=== PATIENT | female | born 1980 | race Caucasian/White ===

== ENCOUNTER → 2016-06-30 | Outpatient (CLI) | payer BC ==
[~2016-06-30] MED LIST: ATOR20TA PO; CARV12.5 PO; CARV3.12 PO; DILT30TA37 PO; DOXY25TA51 PO; LORA0.5T86 PO; [UNRECOGNIZED DRUG - OTHER] PO
[2016-06-30 09:41] LABS: BASOPHILS % (AUTO) 0.1 % (0-2); EOSINOPHILS # (AUTO) 0.2 T/MM3 (0-0.5); HCT - HEMATOCRIT 41.7 % (36-46); HGB - HEMOGLOBIN 13.9 GM/DL (12-16); IMMATURE GRANULOCYTE # (AUTO) 0.02 T/MM3 (0.00-0.03); IMMATURE GRANULOCYTE % (AUTO) 0.2 % (0.0-0.5); LYMPHOCYTES % (AUTO) 21.8 % (23-45); MEAN CORPUSCULAR HGB 29.4 UUG (26-34); MEAN CORPUSCULAR HGB CONC(MCHC 33.3 GM/DL (31-37); MEAN CORPUSCULAR VOLUME 88.3 UM3 (80-100); MEAN PLATELET VOLUME 9.4 UM3 (9.4-12.4); MONOCYTES # (AUTO) 0.5 T/MM3 (0-0.8); MONOCYTES % (AUTO) 4.9 % (0-9.0); NEUTROPHILS #(AUTO)-ABSOLUTE 6.5 T/MM3 (1.8-7.7); RED BLOOD COUNT 4.72 M/MM3 (4.00-5.20); WBC - WHITE BLOOD COUNT 9.1 T/MM3 (4.5-11.0)
[2016-06-30 09:51] LABS: ALBUMIN 4.3 G/DL (3.5-5.0); ALBUMIN/GLOBULIN RATIO 1.2 RATIO (1.1-2.2); ALKALINE PHOSPHATASE 125 U/L (38-126); ALT (SGPT) 496 U/L (9-52); ANION GAP 12 MEQ/L (5-15); AST (SGOT) 85 U/L (14-36); BUN/CREATININE RATIO 19 RATIO (6-26); CALCIUM 9.6 MG/DL (8.4-10.2); CHLORIDE 104 MEQ/L (98-107); CO2 - CARBON DIOXIDE 27 MEQ/L (22-30); CREATININE 0.9 MG/DL (0.7-1.2); GLOMERULAR FILTRATION RATE 71; GLUCOSE 126 MG/DL (65-110); MAGNESIUM 1.9 MG/DL (1.6-2.3); POTASSIUM 4.5 MEQ/L (3.6-5); SODIUM 143 MEQ/L (134-144); TOTAL PROTEIN 7.8 G/DL (6.3-8.2)
[2016-06-30 10:14] LABS: INFLUENZA A AG SCREEN NEGATIVE (NEGATIVE); INFLUENZA B AG SCREEN NEGATIVE (NEGATIVE)
[2016-06-30 10:21] LABS: THYROID STIM HORMONE-TSH 0.52 MIU/L (0.47-4.68)
== END ==
LOC: LAB 09:21
PROVIDERS: ATTEND Internal Medicine Cardiovascular Disease
DX: R00.2 Palpitations (principal); R05 Cough
CPT/HCPCS: 36415; 80053; 83735; 84436; 84443; 84480; 85025; 87400

== ENCOUNTER 2016-07-04 07:21 | Emergency (ER) | payer SELFPAY ==
[~2016-07-04] VITALS: Ht 165.1 cm; Wt 111.3 kg
[2016-07-04 07:21] VITALS: Ht 165.1 cm; Wt 111.3 kg
[~2016-07-04 07:21] MED LIST changes: -DILT30TA37 PO; -[UNRECOGNIZED DRUG - OTHER] PO
--- OUTSIDE RECORDS SUMMARY | 2016-07-04 07:26 | XMS REPORT ---
Author Radha Davidson Organization [employer] Address Unknown Phone Unavailable Care Team Providers Care Mri Supervisor Name Role Phone Radha Snow CP Unavailable Allergies No Known Allergies Problems No Known Problems Medications Medication Code System Code Instructions Start Date End Date Status Dosage Lab Order NDC 0 Orders Feb 29, 2016 as directed Results No Known Results Summary Purpose [employer] Submission
--- OUTSIDE RECORDS SUMMARY | 2016-07-04 07:26 | XMS REPORT ---
Author Hallie Bach Organization [employer] Address Unknown Phone Unavailable Care Team Providers Care Saturator Operator Name Role Phone Hallie Conway CP Unavailable Allergies No Known Allergies Problems No Known Problems Medications Medication Code System Code Instructions Start Date End Date Status Dosage Nitroglycerin [facility] [address]-57 0.4 MG Sublingual as directed Feb 03, 2016 not defined Prazosin HCl [facility] [address]-27 1 MG Orally twice a day Feb 03, 2016 1 Coreg [facility] [address]-57 12.5 MG Orally twice a day Feb 03, 2016 1 Results No Known Results Summary Purpose [employer] Submission
--- OUTSIDE RECORDS SUMMARY | 2016-07-04 07:26 | XMS REPORT ---
Author Author Radha Snow Organization [facility] Address [address] [place] [address] Care Team Providers Care Electrogalvanizing Machine Operator Name Role Phone Radha Snow Unavailable [phone] PROBLEMS Unknown Problems ALLERGIES Unknown Allergies SOCIAL HISTORY No smoking Hx information available PLAN OF CARE VITAL SIGNS MEDICATIONS Unknown Medications RESULTS No Results PROCEDURES No Known procedures IMMUNIZATIONS No Known Immunizations
--- OUTSIDE RECORDS SUMMARY | 2016-07-04 07:26 | XMS REPORT ---
Author Hallie Bach Organization [employer] Address Unknown Phone Unavailable Care Team Providers Care High Value Associate Name Role Phone Hallie Conway CP Unavailable Allergies No Known Allergies Problems No Known Problems Medications Medication Code System Code Instructions Start Date End Date Status Dosage Prazosin HCl [facility] [address]-15 2 MG Orally twice a day Feb 03, 2016 1 Results No Known Results Summary Purpose [employer] Submission
--- OUTSIDE RECORDS SUMMARY | 2016-07-04 07:26 | XMS REPORT ---
Author Author Radha Snow Organization [facility] Address [address] [place] [address] Care Team Providers Care Customs House Broker Name Role Phone Radha Snow Unavailable [phone] PROBLEMS Unknown Problems ALLERGIES Unknown Allergies SOCIAL HISTORY No smoking Hx information available PLAN OF CARE VITAL SIGNS MEDICATIONS Medication Instructions Dosage Frequency Start Date End Date Duration Status Toprol XL 25 MG Orally Once a day 1.5 tablets 24h Feb, 30 day(s ) Active Ciprodex 0.3-0.1 % Otic Twice a day 4 drops into affected ear 12h Mar, 7 days Active RESULTS No Results PROCEDURES No Known procedures IMMUNIZATIONS No Known Immunizations
--- OUTSIDE RECORDS SUMMARY | 2016-07-04 07:26 | XMS REPORT ---
Author Radha Davidson Organization [employer] Address Unknown Phone Unavailable Care Team Providers Care I&C Technician Name Role Phone Radha Snow CP Unavailable Allergies No Known Allergies Problems No Known Problems Medications Medication Code System Code Instructions Start Date End Date Status Dosage Pepcid [facility] [address]-74 20 MG Orally twice a day Feb 04, 2016 1 tablet at bedtime Results No Known Results Summary Purpose [employer] Submission
--- OUTSIDE RECORDS SUMMARY | 2016-07-04 07:26 | XMS REPORT ---
Author Author Radha Snow Organization [facility] Address [address] [place] [address] Care Team Providers Care Stereotyper Name Role Phone Radha Snow Unavailable [phone] PROBLEMS Unknown Problems ALLERGIES Unknown Allergies SOCIAL HISTORY No smoking Hx information available PLAN OF CARE VITAL SIGNS MEDICATIONS Medication Instructions Dosage Frequency Start Date End Date Duration Status Propranolol HCl 10 MG Orally twice a day one May, 30 day(s) Active RESULTS No Results PROCEDURES No Known procedures IMMUNIZATIONS No Known Immunizations
--- OUTSIDE RECORDS SUMMARY | 2016-07-04 07:26 | XMS REPORT ---
Author Radha Davidson Organization [employer] Address Unknown Phone Unavailable Care Team Providers Care Supply Planner Name Role Phone Radha Snow CP Unavailable Allergies No Known Allergies Problems No Known Problems Medications Medication Code System Code Instructions Start Date End Date Status Dosage Coreg [facility] [address]-42 3.125 mg Orally BID in combination to make 9.375 mg BID Feb 03, 2016 1 Results No Known Results Summary Purpose [employer] Submission
--- OUTSIDE RECORDS SUMMARY | 2016-07-04 07:26 | XMS REPORT ---
Author Author Radha Snow Organization [facility] Address [address] [place] [address] Care Team Providers Care Moth Exterminator Name Role Phone Radha Snow Unavailable [phone] PROBLEMS Unknown Problems ALLERGIES Unknown Allergies SOCIAL HISTORY No smoking Hx information available PLAN OF CARE VITAL SIGNS MEDICATIONS Medication Instructions Dosage Frequency Start Date End Date Duration Status Hydrochlorothiazide 25 MG Orally Once a day 1 tablet 24h Apr, 30 day(s) Active RESULTS No Results PROCEDURES No Known procedures IMMUNIZATIONS No Known Immunizations
--- OUTSIDE RECORDS SUMMARY | 2016-07-04 07:26 | XMS REPORT ---
Author Radha Davidson Organization [employer] Address Unknown Phone Unavailable Care Team Providers Care Network Control Operators Supervisor Name Role Phone Radha Snow CP Unavailable Allergies No Known Allergies Problems No Known Problems Medications Medication Code System Code Instructions Start Date End Date Status Dosage Prazosin HCl [facility] [address]-73 1 mg Orally twice a day Feb 03, 2016 1 Results No Known Results Summary Purpose [employer] Submission
--- OUTSIDE RECORDS SUMMARY | 2016-07-04 07:26 | XMS REPORT ---
Author Author Radha Snow Organization [facility] Address [address] [place] [address] Care Team Providers Care Foxing Cutting Machine Operator Name Role Phone Radha Snow Unavailable [phone] PROBLEMS Unknown Problems ALLERGIES Unknown Allergies SOCIAL HISTORY No smoking Hx information available PLAN OF CARE VITAL SIGNS MEDICATIONS No Known Medications RESULTS No Results PROCEDURES No Known procedures IMMUNIZATIONS No Known Immunizations
--- OUTSIDE RECORDS SUMMARY | 2016-07-04 07:26 | XMS REPORT ---
Author Radha Davidson Organization [employer] Address Unknown Phone Unavailable Care Team Providers Care Soil Fertility Specialist Name Role Phone Radha Snow CP Unavailable Allergies No Known Allergies Problems No Known Problems Medications Medication Code System Code Instructions Start Date End Date Status Dosage Prazosin HCl [facility] [address]-99 1 MG Orally twice a day Feb 03, 2016 1 Results No Known Results Summary Purpose [employer] Submission
--- OUTSIDE RECORDS SUMMARY | 2016-07-04 07:26 | XMS REPORT ---
Author Radha Davidson Organization [employer] Address Unknown Phone Unavailable Care Team Providers Care Specialty Sales Representative Name Role Phone Radha Snow CP Unavailable Allergies No Known Allergies Problems No Known Problems Medications Medication Code System Code Instructions Start Date End Date Status Dosage Augmentin [facility] [address]-24 875-125 MG Orally BID Mar 09, 2016 once Results No Known Results Summary Purpose [employer] Submission
--- OUTSIDE RECORDS SUMMARY | 2016-07-04 07:26 | XMS REPORT ---
Author Radha Davidson Organization [employer] Address Unknown Phone Unavailable Care Team Providers Care Slot Shift Supervisor Name Role Phone Radha Snow CP Unavailable Allergies No Known Allergies Problems No Known Problems Medications Medication Code System Code Instructions Start Date End Date Status Dosage Lab Order NDC 0 Orders once a day Feb 10, 2016 not defined Results No Known Results Summary Purpose [employer] Submission
--- OUTSIDE RECORDS SUMMARY | 2016-07-04 07:26 | XMS REPORT | Continuity of Care Document ---
Author Author [facility] Organization [facility] Address Unknown Phone Unavailable Support Name Relationship Address Phone TEJAS WRIGHT MD Caregiver [address] [place] [address] Unavailable DONN GARCIA MD Caregiver [address] [place] [address] Unavailable ROYA RAMIREZ Next Of Kin [address] [place] [address] Insurance Providers Guarantor Donis Whittaker Address [address] [place] [address] Email DENIED/NO [place] Payer [facility] Policy Number [id number] Subscriber's Name Donis Whittaker Relationship 18 Self Group Number [id number] Advance Directives Directive Response Recorded Date/Time Advanced Directives Type None 02/02/16 10:32pm Chief Complaint and Reason for Visit Chief Complaint Hypertension Reason for Visit Malignant hypertension Problems Past Problems Medical Problem Onset Date Malignant hypertension Unknown Medications Current Home Medications Medication Dose Units Route Directions Days Qty Instructions Start Date Atorvastatin Calcium (Lipitor) 20 Mg Tablet 1 Tab Oral Bedtime Carvedilol (Coreg) 3.125 Mg Tablet 3.125 Mg Oral Twice Daily With Meals BEST WITH FOOD. 02/02/16 Carvedilol (Coreg) 12.5 Mg Tablet 1 Tab Oral Twice Daily With Meals 30 Tablet BEST WITH MEALS. 02/03/16 Doxylamine Succinate (Unisom) 25 Mg Tablet 25 Mg Oral Bedtime 04/18 Lorazepam (Ativan) 0.5 Mg Tablet 0.5 Mg Oral Twice A Day as needed for Prn Orders 02/02/16 Past Home Medications Medication Directions Ordered Status Acyclovir 400 Mg Tablet, 400 Mg Oral Twice A Day 07/07/13 Discontinued Docusate Sodium (Colace) 100 Mg Capsule, 100 Mg Oral Twice A Day 07/07/13 Discontinued Vits W-Ca,Fe,Fa(<1MG) () 1 Tab Tablet, 1 Tab Oral Daily 09/14 Discontinued Social History Social History Problem Response Recorded Date/Time Onset Date Status Hx Substance Use No 02/02/2016 11:15pm Not Applicable Not Applicable Hx Alcohol Use Y OCCASIONALLY 02/02/2016 11:15pm Not Applicable Not Applicable Has the pt used tobacco in the last 12 months No 07/07/2013 2:17am Not Applicable Not Applicable Query Response Start Date Stop Date Smoking Status Never smoker Hospital Discharge Instructions No hospital discharge instructions. Plan of Care Discharge Date 02/03/16 12:30am Disposition 01 DISCHARGED HOME, SELF-CARE Condition at Discharge Improved Instructions/Education Provided DI for High Blood Pressure Prescriptions See Medication Section Referrals DONN GARCIA MD Address: [address] [place] [address] [place] [address] Additional Instructions/Education Coreg 12.5 mg twice daily Continue outpatient workup tomorrow as scheduled Care Plan and Goals Physician Care Plan Problem: Ligament hypertension Goal: Follow up with primary care provider Instructions: Take medications and follow care plan as discussed/written Coreg 12.5 mg twice daily Continue outpatient workup tomorrow as scheduled Functional Status No functional status results. Allergies, Adverse Reactions, Alerts Allergen Type Severity Reaction Status Last Updated Diphenhydramine Allergy Severe Active 07/06/13 Sulfa eyedrops Allergy Mild Active 07/06/13 Immunizations Query Response on File Recorded Date/Time Hx Influenza Vaccination Yes 07/07/13 2:17am Hx Influenza Vaccination Yes 07/07/13 2:17am Vital Signs Acute Vital Signs Vital Response Date/Time Temperature (Fahrenheit) 98.5 deg F (96.8 - 99.1) 02/03/2016 12:30am Temperature (Calculated Celsius) 36.20348 degrees C (36.0 - 37.3) 02/03/2016 12:30am Pulse Rate (adult) 74 bpm (60 - 100) 02/03/2016 12:30am Respiratory Rate 20 breaths/min (10 - 20) 02/03/2016 12:30am O2 Sat by Pulse Oximetry 97 % (90 - 100) 02/03/2016 12:30am Blood Pressure 161/91 mm Hg 02/03/2016 12:30am Height (Feet) 5 feet 02/02/2016 10:32pm Height (Inches) 5.00 inches 02/02/2016 10:32pm Weight (Kilograms) 117.300 kg 02/02/2016 10:32pm Body Mass Index (BMI) 43.0 02/02/2016 10:32pm Results No known relevant diagnostic tests, laboratory data and/or discharge summary. Procedures No known history of procedures. Encounters Encounter Location Arrival/Admit Date Discharge/Depart Date Attending Provider Departed Emergency Room [facility] 02/02/16 10:29pm 02/03/16 12: 30am TEJAS WRIGHT MD Recent Diagnosis
--- OUTSIDE RECORDS SUMMARY | 2016-07-04 07:26 | XMS REPORT ---
Author Author Radha Snow Organization [facility] Address [address] [place] [address] Care Team Providers Care Creative Art Therapist Name Role Phone Radha Snow Unavailable [phone] PROBLEMS Unknown Problems ALLERGIES Unknown Allergies SOCIAL HISTORY No smoking Hx information available PLAN OF CARE VITAL SIGNS MEDICATIONS Medication Instructions Dosage Frequency Start Date End Date Duration Status Rocephin 1 GM Injection one time injection as directed Mar, Active RESULTS No Results PROCEDURES No Known procedures IMMUNIZATIONS No Known Immunizations
--- OUTSIDE RECORDS SUMMARY | 2016-07-04 07:26 | XMS REPORT ---
Author Radha Davidson Organization [employer] Address Unknown Phone Unavailable Care Team Providers Care Air Quality Engineer Name Role Phone Radha Snow CP Unavailable Allergies No Known Allergies Problems No Known Problems Medications Medication Code System Code Instructions Start Date End Date Status Dosage Lab Order NDC 0 Orders Feb 04, 2016 as directed Results No Known Results Summary Purpose [employer] Submission
--- OUTSIDE RECORDS SUMMARY | 2016-07-04 07:26 | XMS REPORT | Continuity of Care Document ---
Author Author [facility] Organization [facility] Address Unknown Phone Unavailable Allergies Active Description Code Type Severity Reaction Onset Reported/Identified Relationship to Patient Clinical Status Yes diphenhydramine diphenhydramine Drug Allergy Unknown TACHYCARDIA 02/08/2016 Yes ciprofloxacin ciprofloxacin Drug Allergy Unknown UNKNOWN 02/10/2016 Medications Problems Date Dx Coded Attending Type Code Diagnosis Diagnosed By 02/08/2016 Edy SHAH, Radha Valencia D35.00 BENIGN NEOPLASM OF UNSPECIFIED ADRENAL G 02/08/2016 Edy SHAH, Radha K A I10 ESSENTIAL (PRIMARY) HYPERTENSION 02/08/2016 Radha Snow MD A I16.1 HYPERTENSIVE EMERGENCY 02/08/2016 Radha Snow MD K A D35.00 BENIGN NEOPLASM OF UNSPECIFIED ADRENAL G 02/08/2016 Radha Snow MD K A I10 ESSENTIAL (PRIMARY) HYPERTENSION 02/08/2016 Edy SHAH, Radha K A I16.1 HYPERTENSIVE EMERGENCY 02/09/2016 Edy SHAH, Radha K A D35.00 BENIGN NEOPLASM OF UNSPECIFIED ADRENAL G 02/09/2016 Edy SHAH, Radha K A I10 ESSENTIAL (PRIMARY) HYPERTENSION 02/09/2016 Radha Snow MD K A I16.1 HYPERTENSIVE EMERGENCY Procedures Results Encounters ACCT No. Visit Date/Time Discharge Status Pt. Type Provider Facility Loc./Unit Complaint [id number] 07/06/2016 08:00:00 2016 08:00:00 CAN Outpatient Radha Snow MD [facility] W.NM [id number] 02/10/2016 15:29:00 2015 15:29:00 DIS Outpatient Radha Snow MD [facility] W.RAC [id number] 02/08/2016 14:40:00 ACT Outpatient Radha Snow MD [facility] W[facility]RAC
--- OUTSIDE RECORDS SUMMARY | 2016-07-04 07:26 | XMS REPORT ---
Author Author Radha Snow Organization [facility] Address [address] [place] [address] Care Team Providers Care Licensed Psychologist Manager Name Role Phone Radha Snow Unavailable [phone] PROBLEMS Unknown Problems ALLERGIES Unknown Allergies SOCIAL HISTORY No smoking Hx information available PLAN OF CARE VITAL SIGNS MEDICATIONS Medication Instructions Dosage Frequency Start Date End Date Duration Status Propranolol HCl 40 MG Orally Twice a day 1 tablet 12h May, 30 day(s) Active RESULTS No Results PROCEDURES No Known procedures IMMUNIZATIONS No Known Immunizations
--- OUTSIDE RECORDS SUMMARY | 2016-07-04 07:26 | XMS REPORT ---
Author Author Radha Snow Organization [facility] Address [address] [place] [address] Care Team Providers Care Loading Dock Helper Name Role Phone Radha Snow Unavailable [phone] PROBLEMS Unknown Problems ALLERGIES Unknown Allergies SOCIAL HISTORY No smoking Hx information available PLAN OF CARE VITAL SIGNS MEDICATIONS Medication Instructions Dosage Frequency Start Date End Date Duration Status Cardizem 30 MG Orally Three times a day 1 tablet before meals and at bedtime 8h Jun, 30 day(s) Active RESULTS No Results PROCEDURES No Known procedures IMMUNIZATIONS No Known Immunizations
--- OUTSIDE RECORDS SUMMARY | 2016-07-04 07:26 | XMS REPORT ---
Author Radha Davidson Organization [employer] Address Unknown Phone Unavailable Care Team Providers Care Fire Battalion Chief Name Role Phone Radha Snow CP Unavailable Allergies No Known Allergies Problems No Known Problems Medications Medication Code System Code Instructions Start Date End Date Status Dosage Toprol XL [facility] [address]-51 25 MG Orally BID Feb 18, 2016 1 tablet Results No Known Results Summary Purpose [employer] Submission
[2016-07-04] MEDS ORDERED: ASPIRIN *EC* 325mg TABLET PO ONE (07:30)
--- OUTSIDE RECORDS SUMMARY | 2016-07-04 07:32 | XMS REPORT | Continuity of Care Document ---
Author Author [facility] Organization [facility] Address Unknown Phone Unavailable Allergies Active Description [...] Status Pt. Type Provider Facility Loc./Unit Complaint [id number] 07/06/2016 08:00:00 2016 08:00:00 CAN Outpatient Radha Snow MD [facility] W.NM [id number] 02/10/2016 15:29:00 2015 15:29:00 DIS Outpatient Radha Snow MD [facility] W.RAC [id number] 02/08/2016 14:40:00 ACT Outpatient Radha Snow MD [facility] W.RAC
--- NOTE | 2016-07-04 07:47 | NUR ---
PROVIDER DR. Fredy PATEL IN ROOM WITH PT.
--- NOTE | 2016-07-04 07:58 | ERPDOC ---
Departure Disposition Decision Date: Jul 04, 2016 Disposition Decision Time: 11:37 Disposition: 01 DISCHARGED HOME, SELF-CARE Impression Impression Impression: Primary Impression: Palpitations Severity: Mild Condition: Improved Seen By: Physician only Referrals: Dr. Snow Call for appointment DONN GARCIA MD (Family) 1 Day Patient Instructions: Palpitations (ED) Problems/Meds/Labs Reviewed?: Yes Medications reviewed and manag: Yes Follow up care ordered?: Yes Mental Status: Alert, Oriented HPI - Cardiac General Chief Complaint: Cardiac Complaint Stated Complaint: SOA,TACH Time Seen by Provider: 07:23 Source: patient (Patient presents to the ER with multiple complaints. Patient reports imtermittant PSVT for several months, worse since she had a a Laproscopic Cholecystectomy 1 week ago. Patient states she sees Dr. Alan in [place], who asked that she come to the ER for CT and Echocardiogram), other ( Patient states she awoke with Palpitations and Tachycardia at approx 3am, took a Cardizem and went back to bed. Patient states her symptoms were still present when she awoke this morning, she took a Lorazepam, then came to the Hospital. ) Exam Limitations: no limitations HPI - Cardiac General Occurred At: home Onset/Timing: Changing over time Duration: 6-12 hrs Pain/Severity Scale: Now & Worst: 0/10 Location: other (no chest pain) Activities at Onset/Context: rest Prior CP/Workup: other (Patient is under the care of Dr. Snow in [place] for this condition. ) Modifying Factors: IMPROVES WITH: other, rest Nitro Today/Relief: no nitro taken today Aspirin Today: 325 mg x 1, provided by ED Associated Symptoms: other Hx of Similar Symptoms: Yes Allergies: Coded Allergies: diphenhydramine (Verified Allergy, Severe, 07/04/16) svt Uncoded Allergies: Sulfa eyedrops (Allergy, Mild, 07/06/13) Past History Past Medical History Metabolic: hypercholesterolemia, hypertension Hx Echocardiogram: No GI: GERD Psychological: anxiety, other Surgical History Denies Surgeries Family History Family PMH: FOUND: other Vaccines Hx Influenza Vaccination: Yes Social History Smoking Status: Unknown if ever smoked Does patient use chewing tobac: No Second Hand Exposure: No Substance Use Type: does not use Alcohol Intake: none Housing: house Service: No Occupational Hazard: No Advance Directives: Yes Full Code Record Review Pertinent history updated: Yes Review of Systems Constitutional Constitutional: DENIES: chills, fever Eyes Lids/Accessories: DENIES: erythema, swelling ENMT Ears: DENIES: erythema, pain Balance: DENIES: ataxia, vertigo Sinuses: DENIES: congestion, rhinorrhea Mouth/Throat: DENIES: sore throat Cardiovascular Cardiac: DENIES: chest pain, dyspnea on exertion, orthopnea Rhythm/Rate: palpitations, tachycardia Pulmonary Respiratory: DENIES: cough, dyspnea, sputum GI Upper Abdomen: DENIES: nausea, pain, vomiting Lower Abdomen: DENIES: constipation, diarrhea, pain General: DENIES: dysuria Musculoskeletal General: DENIES: cramps, pain, weakness Integumentary Skin: DENIES: color change, itching, rash Neurological General: DENIES: ataxia, change in strength, headache, numbness, poor coordination, seizures, syncope, vertigo, weakness Psychiatric Psychiatric: DENIES: anxiety, depression, nervousness Hematologic/Lymphatic Hematologic/Lymphatic: DENIES: anemia Allergic/Immunological Allergic/Immunoligical: DENIES: sneezing All other Systems All Other Systems: Reviewed and Negative Physical Exam General General Nourishment: well nourished, well developed, appears stated age, adult General Body Habitus: well groomed Vitals and Pain First Documented Vital Signs Date Time Temp Pulse Resp B/P Pulse Ox O2 Delivery O2 Flow Rate FiO2 07/04/16 07:21 97.6 84 16 142/79 99 Room Air Weight: Kilograms: 111.300 Height (feet): 5 Height (inches): 5.00 Triage Pain Scale: RN VS reviewed by Provider: Yes Eyes (brief) Eyes Brief: found: EOMI, PERRL ENMT (brief) ENMT Brief: FOUND: TM clear, TM good light reflex, mucosa moist, NOT FOUND: pharnyx erythema Neck (brief) Neck: FOUND: trachea midline, NOT FOUND: adenopathy, tenderness, tracheal deviation Respiratory (brief) Respiratory: FOUND: clear all lopez, equal bilaterally Cardiovascular (brief) Cardiac: FOUND: regular rate, regular rhythm Capillary Refill: <2 sec Pulses: all distal extremities, equal, strong Abdomen (brief) Abdominal Brief: FOUND: bowel normo active x4, soft, NOT FOUND: distended, tender Lymphatic (brief) Lymphatic Brief: NOT FOUND: adenopathy Musculoskeletal (brief) Musculoskeletal Brief: NOT FOUND: spasm, tenderness Integumentary (brief) Integumentary Brief: FOUND: pink, warm Neurologic (brief) Neurological Brief: FOUND: CN w/o gross def to obs, gait w/o gross def to obs, motor-no gross deficits, sensory-no gross deficits, NOT FOUND: ataxia Psychiatric (brief) Psychiatric Brief: FOUND: alert, attentive, normal affect, oriented Differential Diagnoses Considering: Acute CA, Anxiety/Panic, Atrial Fibrillation, CHF, Pericarditis, Prolonged Qtc, PSVT, Pulmonary Edema, Pulmonary Embolus, Other Progress Results/Orders Orders Procedure Category Date Status Time Iv Lock (Ed Only) EDM 07/04/16 Transmitted 07:30 Cbc W/Auto LAB 07/04/16 Complete Diff-Reflex Manual Cmp - Comprehensive LAB 07/04/16 Complete Metabolic Troponin I W LAB 07/04/16 Complete Hemolysis Index Aspirin *Ec* (Ecotrin) PHA 07/04/16 Complete 07:30 EKG EKG 07/04/16 Taken D-Dimer LAB 07/04/16 Complete Ua, Dip Wreflex LAB 07/04/16 Complete Microsc & Operations Management Trainee 09:03 LAB 07/04/16 Complete Qualitative, Urine 09:[address] 07/04/16 Resulted Iohexol (Omnipaque) PHA 07/04/16 Complete 10:49 Normal Saline (Ns) PHA 07/04/16 Complete 10:49 Saline Flush (Iv PHA 07/04/16 Complete Flush) 10:49 Incentive Spirometry RT 07/04/16 Logged Lab Results Laboratory Tests Test 07/04/16 08:19 07/04/16 10:06 White Blood Count 7.1T/MM3 Red Blood Count 4.55M/MM3 Hemoglobin 13.3GM/DL Hematocrit 40.3% Mean Corpuscular Volume 88.6UM3 Mean Corpuscular Hemoglobin 29.2UUG Mean Corpuscular Hemoglobin Concent 33.0GM/DL RDW Standard Deviation 38.5FL Platelet Count 334T/MM3 Mean Platelet Volume 9.6UM3 Immature Granulocyte % (Auto) 0.3% Neutrophils (%) (Auto) 68.7% Lymphocytes (%) (Auto) 22.6% Monocytes (%) (Auto) 6.2% Eosinophils (%) (Auto) 2.1% Basophils (%) (Auto) 0.1% Absolute Immature Granulocyte (auto 0.02T/MM3 Absolute Neutrophils (auto) 4.9T/MM3 Absolute Lymphocytes (auto) 1.6T/MM3 Absolute Monocytes (auto) 0.4T/MM3 Absolute Eosinophils (auto) 0.2T/MM3 Absolute Basophils (auto) 0.0T/MM3 D-Dimer 241NG/ML Turbidity < 20 Sodium Level 142MEQ/L Potassium Level 4.3MEQ/L Chloride Level 105MEQ/L Carbon Dioxide Level 24MEQ/L Anion Gap 13MEQ/L Blood Urea Nitrogen 17.0MG/DL Creatinine 0.9MG/DL Glomerular Filtration Rate Calc 71 BUN/Creatinine Ratio 19RATIO Glucose Level 117MG/DL Calculated Osmolality 276MOSM/KG Calcium Level 9.6MG/DL Total Bilirubin 0.90MG/DL Icterus Index < 2 Aspartate Amino Transf (AST/SGOT) 49U/L Alanine Aminotransferase (ALT/SGPT) 178U/L Alkaline Phosphatase 105U/L Troponin I < 0.012ng/ml Total Protein 7.3G/DL Albumin 4.0G/DL Globulin 3.3G/DL Albumin/Globulin Ratio 1.2RATIO Chemistry Specimen Hemolysis < 15 Urine Collection Type Cleancatch-midstream Urine Color Yellow Urine Turbidity Clear Urine pH 5.5 Urine Specific [place] <=1.005 Urine Protein Negative Urine Glucose (UA) Negative Urine Ketones Negative Urine Blood Negative Urine Nitrite Negative Urine Bilirubin Negative Urine Urobilinogen 0.2EU/DL Urine Leukocyte Esterase Negative Urinalysis Comment Microscopic not ind. Urine Test Negative Medications Current ED Medications Aspirin (Ecotrin) 325 mg O ONCE PO Last administered on 07/04/16t 08:36; Start 07/04/16 at 07:30; Stop 07/04/16 at 07:35; Status DC Iohexol 1 bottle 1 bottle STK-MED ONCE .ROUTE ; Start 07/04/16 at 10:49; Stop 07/04/16 at 10:50; Status DC Sodium Chloride (NS) 100 ml @ As Directed STK-MED ONCE .ROUTE ; Start 07/04/16 at 10:49; Stop 07/04/16 at 10:50; Status DC Sodium Chloride (Iv Flush) 10 ml STK-MED ONCE .ROUTE ; Start 07/04/16 at 10:49; Stop 07/04/16 at 10:50; Status DC Progress Progress Patient remains asymptomatic Patient will continue Home Incentive Spirometer Will follow with Dr. Snow EKG EKG : Rate: 60-100 Rhythm: sinus [place]: right QRS: RBBB (Incomplete) Intervals: normal ST/T: normal Interpreted by: signing physician EKG Comments Similar to 02/02/2016 EKG ScImage/Picomm EKG interpreted in ScImage/Pic: No Consult/PCP Consult/PCP : Physician Contacted: Dr. Snow Time Called: 11:00 Time of first response: 11:15 Type of discussion: Phone Consult/PCP Discussion Details Discussed patient evaluation, Labs, EKG and CT findings Comments Discharge Home Will see in the office Patient has been worked up, without acute findings CT CT : Reason for Exam: Palpitations, Elevated D-Dimer CT: PE IV contrast Interpretation: Normal, Reviewed Written Report LAW PATEL DO Jul 04, 2016 07:58
[2016-07-04 08:29] LABS: BASOPHILS % (AUTO) 0.1 % (0-2); EOSINOPHILS # (AUTO) 0.2 T/MM3 (0-0.5); EOSINOPHILS % (AUTO) 2.1 % (0-4); HCT - HEMATOCRIT 40.3 % (36-46); HGB - HEMOGLOBIN 13.3 GM/DL (12-16); IMMATURE GRANULOCYTE # (AUTO) 0.02 T/MM3 (0.00-0.03); IMMATURE GRANULOCYTE % (AUTO) 0.3 % (0.0-0.5); LYMPHOCYTES # (AUTO) 1.6 T/MM3 (1-4.8); LYMPHOCYTES % (AUTO) 22.6 % (23-45); MEAN CORPUSCULAR HGB 29.2 UUG (26-34); MEAN CORPUSCULAR VOLUME 88.6 UM3 (80-100); MEAN PLATELET VOLUME 9.6 UM3 (9.4-12.4); MONOCYTES # (AUTO) 0.4 T/MM3 (0-0.8); MONOCYTES % (AUTO) 6.2 % (0-9.0); NEUTROPHILS #(AUTO)-ABSOLUTE 4.9 T/MM3 (1.8-7.7); NEUTROPHILS % (AUTO) 68.7 % (33-66); RED BLOOD COUNT 4.55 M/MM3 (4.00-5.20); WBC - WHITE BLOOD COUNT 7.1 T/MM3 (4.5-11.0)
[2016-07-04 08:41] LABS: ALBUMIN/GLOBULIN RATIO 1.2 RATIO (1.1-2.2); ALKALINE PHOSPHATASE 105 U/L (38-126); ALT (SGPT) 178 U/L (9-52); ANION GAP 13 MEQ/L (5-15); AST (SGOT) 49 U/L (14-36); BUN/CREATININE RATIO 19 RATIO (6-26); CALCIUM 9.6 MG/DL (8.4-10.2); CHLORIDE 105 MEQ/L (98-107); CO2 - CARBON DIOXIDE 24 MEQ/L (22-30); CREATININE 0.9 MG/DL (0.7-1.2); GLOMERULAR FILTRATION RATE 71; GLUCOSE 117 MG/DL (65-110); POTASSIUM 4.3 MEQ/L (3.6-5); SODIUM 142 MEQ/L (134-144); TOTAL PROTEIN 7.3 G/DL (6.3-8.2)
--- NOTE | 2016-07-04 09:40 | NUR ---
PT STATUS PT DENIES ANY COMPLAINTS AT THIS TIME, DENIES ANY INCREASE IN HEART RATE. PT DENIES CHEST PAIN OR DYSPNEA AT THIS TIME.
[2016-07-04] MEDS ORDERED: DILT30TA37 PO (09:47)
[2016-07-04] MEDS ORDERED: [UNRECOGNIZED DRUG - OTHER] PO (09:51)
[2016-07-04 10:34] LABS: BLOOD, URINE NEGATIVE (NEGATIVE); COLOR,URINE YELLOW (YELLOW); LEUKOCYTE ESTERASE ,URINE NEGATIVE (NEGATIVE); NITRITE,URINE NEGATIVE (NEGATIVE); UROBILINOGEN,URINE 0.2 EU/DL (NORMAL)
[2016-07-04] MEDS ORDERED: NORMAL SALINE 100 ML ONE (10:49)
[2016-07-04] MEDS ORDERED: IOHEXOL 350 MG/ML 75ml INJECTION ONE (10:49)
[2016-07-04] MEDS ORDERED: SALINE FLUSH 10ml SYRINGE ONE (10:49)
--- NOTE | 2016-07-04 10:50 | NUR ---
CT PT TO CT PER COT.
--- NOTE | 2016-07-04 11:18 | DI ---
Indication: ITS.REASON: Tachycardia, Dyspnea , recent surgery PROCEDURE: CTA PULMONARY EMBOLI: Encounter: Initial Comparison: None Technique: Axial CT pulmonary angiographic phase images were performed through the chest after the administration of intravenous contrast. Coronal and Sagittal MIP reconstructed images were created and reviewed. Automated Exposure Control and Iterative Reconstruction dose reducing techniques were utilized. Contrast: Omnipaque 350 74 mL Findings: Pulmonary arteries: Exam is diagnostic to the segmental pulmonary arterial level. Contrast bolus timing and motion artifact precludes adequate evaluation of the subsegmental pulmonary artery level. No filling defects seen to confirm a pulmonary embolus. Other findings: No pneumothorax or pleural effusion. Minimal dependent atelectasis. No focal consolidative pneumonia. The central airways are patent. No pulmonary masses. No axillary or mediastinal adenopathy. The upper abdomen shows no acute findings. Impression: No pulmonary embolus or acute intrathoracic disease process seen. .
--- NOTE | 2016-07-04 11:24 | NUR ---
REPORT REPORT FROM JEAN-PAUL MCCLENDON. PALOMO SEQUEIRA
--- NOTE | 2016-07-04 11:37 | NUR ---
RT PHONED RT FOR TEACHING.
[2016-07-04 11:45] VITALS: BP 113/66; PULSE 82; RESP 16; TEMP 97.6; O2SAT 99
--- NOTE | 2016-07-04 11:45 | NUR ---
DEPART VERBAL AND WRITTEN DISCHARGE INSTRUCTIONS GIVEN AND UNDERSTOOD. CONDITION STABLE. RELEASED AMBULATORY FROM ED WITH MOTHER.
== END 2016-07-04 11:45 | disposition home or self-care (01) ==
LOC: ED 07:21
DX: R00.2 Palpitations (principal); I10 Essential (primary) hypertension
CPT/HCPCS: 36415; 80053; 81003; 81025; 84484; 85025; 85379; 93005; 94664

== ENCOUNTER → 2016-07-11 | Outpatient (CLI) | payer BC ==
[~2016-07-11] MED LIST changes: -CARV12.5 PO; -CARV3.12 PO; +DILT30TA37 PO; -DOXY25TA51 PO; +[UNRECOGNIZED DRUG - OTHER] PO
[2016-07-11 09:32] LABS: ALBUMIN 4.3 G/DL (3.5-5.0); ALBUMIN/GLOBULIN RATIO 1.4 RATIO (1.1-2.2); ALKALINE PHOSPHATASE 79 U/L (38-126); ALT (SGPT) 86 U/L (9-52); ANION GAP 13 MEQ/L (5-15); AST (SGOT) 42 U/L (14-36); BUN/CREATININE RATIO 18 RATIO (6-26); CALCIUM 9.5 MG/DL (8.4-10.2); CHLORIDE 108 MEQ/L (98-107); CO2 - CARBON DIOXIDE 25 MEQ/L (22-30); CREATININE 0.9 MG/DL (0.7-1.2); GLOMERULAR FILTRATION RATE 71; GLUCOSE 136 MG/DL (65-110); POTASSIUM 4.2 MEQ/L (3.6-5); SODIUM 146 MEQ/L (134-144); TOTAL PROTEIN 7.4 G/DL (6.3-8.2)
== END ==
LOC: LAB 09:01
PROVIDERS: ATTEND Internal Medicine Cardiovascular Disease
DX: R94.5 Abnormal results of liver function studies (principal); E55.9 Vitamin D deficiency, unspecified; R79.89 Other specified abnormal findings of blood chemistry
CPT/HCPCS: 36415; 80048; 80076; 82306; 83735

== ENCOUNTER 2016-08-09 09:31 | Emergency (ER) | payer BC ==
[~2016-08-09] VITALS: Ht 167.6 cm; Wt 109.3 kg
--- OUTSIDE RECORDS SUMMARY | 2016-08-09 09:36 | XMS REPORT ---
Author Author Radha Snow Organization [facility] Address [address] [place] [address] Care Team Providers Care Casualty Insurance Claim Adjuster Name Role Phone Radha Snow Unavailable [phone] PROBLEMS Unknown Problems ALLERGIES Unknown Allergies SOCIAL HISTORY No smoking Hx information available PLAN OF CARE VITAL SIGNS MEDICATIONS Medication Instructions Dosage Frequency Start Date End Date Duration Status Vitamin D 1000 UNIT Orally Once a day 1 tablet 24h Jul, 30 day( s) Active Cozaar 25 MG Orally Once a day 1 tablet 24h Jul, 30 day(s) Active RESULTS No Results PROCEDURES No Known procedures IMMUNIZATIONS No Known Immunizations
--- OUTSIDE RECORDS SUMMARY | 2016-08-09 09:37 | XMS REPORT | Continuity of Care Document ---
Author Author [facility] Organization [facility] Address Unknown Phone Unavailable Support Name Relationship Address Phone LAW PATEL DO Caregiver [address] [place] [address] Unavailable DONN GARCIA MD Caregiver [address] [place] [address] Unavailable JAMESROYA Next Of Kin [address] [place] [address] Insurance Providers Guarantor Donis Whittaker Address [address] [place] [address] Email DENIED/07/04/16 Payer Self Pay Subscriber's Name Donis Whittaker Relationship 18 Self Advance Directives Directive Response Recorded Date/Time Advanced Directives Type None 07/04/16 7:21am Chief Complaint and Reason for Visit Chief Complaint Cardiac Complaint Reason for Visit Palpitations Problems Active Problems Medical Problem Onset Date Status HTN (hypertension) Unknown Palpitations Unknown Acute Past Problems Medical Problem Onset Date Malignant hypertension Unknown Medications Current Home Medications Medication Dose Units Route Directions Days Qty Instructions Start Date Atorvastatin Calcium (Lipitor) 20 Mg Tablet 1 Tab Oral Bedtime Diltiazem Hcl (Cardizem) 30 Mg Tablet 30 Mg Oral Four Times Daily 07/04/16 Lorazepam (Ativan) 0.5 Mg Tablet 0.5 Mg Oral Twice A Day as needed for Prn Orders 02/02/16 Trintelics 15 Mg Oral Daily 07/04/16 Past Home Medications Medication Directions Ordered Status Acyclovir 400 Mg Tablet, 400 Mg Oral Twice A Day 07/07/13 Discontinued Docusate Sodium (Colace) 100 Mg Capsule, 100 Mg Oral Twice A Day 07/07/13 Discontinued Vits W-Ca,Fe,Fa(<1MG) () 1 Tab Tablet, 1 Tab Oral Daily 09/14 Discontinued Social History Social History Problem Response Recorded Date/Time Onset Date Status Chewing Tobacco Status No 07/04/2016 7:40am Not Applicable Not Applicable Hx Substance Use No 07/04/2016 7:40am Not Applicable Not Applicable Hx Alcohol Use N NONE 07/04/2016 7:40am Not Applicable Not Applicable Has the pt used tobacco in the last 12 months No 07/07/2013 2:17am Not Applicable Not Applicable Query Response Start Date Stop Date Smoking Status Never smoker Hospital Discharge Instructions No hospital discharge instructions. Plan of Care Discharge Date 07/04/16 11:45am Disposition 01 DISCHARGED HOME, SELF-CARE Condition at Discharge Improved Instructions/Education Provided Palpitations (ED) Prescriptions See Medication Section Referrals Dr. Meyer Address: [place], [place] Note: Call for appointment DONN GARCIA MD Order Date: 1 Day Address: [address] [place] [address] [address] [place], [place] [id number] Note: Care Plan and Goals Physician Care Plan Problem: 1. Palpitations Goal: 1. Follow up with primary care provider in 1 day for follow-up. Call Dr. Meyer today for an appointment 2. Continue Home Medications 3. Return to the ER as needed Instructions: 1. Take medications and follow care plan as discussed/written Functional Status No functional status results. Allergies, Adverse Reactions, Alerts Allergen Type Severity Reaction Status Last Updated Diphenhydramine Allergy Severe Active 07/04/16 Sulfa eyedrops Allergy Mild Active 07/06/13 Immunizations Query Response on File Recorded Date/Time Hx Influenza Vaccination Yes 07/07/13 2:17am Hx Influenza Vaccination Yes 07/07/13 2:17am Influenza Vaccine Hx 2015 07/04/16 7:40am Vital Signs Acute Vital Signs Vital Response Date/Time Temperature (Fahrenheit) 97.6 deg F (96.8 - 99.1) 07/04/2016 11:45am Temperature (Calculated Celsius) 36.85925 degrees C (36.0 - 37.3) 07/04/2016 11:45am Pulse Rate (adult) 82 bpm (60 - 100) 07/04/2016 11:45am Respiratory Rate 16 breaths/min (10 - 20) 07/04/2016 11:45am O2 Sat by Pulse Oximetry 99 % (90 - 100) 07/04/2016 11:45am Blood Pressure 113/66 mm Hg 07/04/2016 11:45am Height (Feet) 5 feet 07/04/2016 7:21am Height (Inches) 5.00 inches 07/04/2016 7:21am Weight (Kilograms) 111.300 kg 07/04/2016 7:21am Body Mass Index (BMI) 40.0 07/04/2016 7:21am Results Laboratory Results Test Name Result Units Flags Reference Collection Date/Time Result Date/ Time Comments Hepatitis B Surface Antibody, Quant 366.00 mIU/mL 12.00-1001.0 2016 8:00am 06/21/2016 4:45am Clinical Interpretation: Anti-HBs detected at >10 mIU/mL. Patient is considered to be immune to infection with HBV. It has not been determined what the clinical sigificance is for values greater than >12.0 mIU/mL, other than the individual is considered to be immune to HBV infection. Rubella Screen POSITIVE POSITIVE 06/20/2016 8:00am 06/20/2016 8:53am Tuberculosis Blood Test (T-Spot) SENT OUT 06/20/2016 8:00am 2016 8:01am TB Test (T-Spot) Comment REF LAB RPT SCANNED 06/20/2016 8:00am 12:07pm TB Test (T-Spot) NEGATIVE 06/20/2016 8:00am 06/22/2016 12:07pm Rubeola (Measles) IgG Antibody Positive 06/20/2016 8:00am 2016 9:03pm Rubeola (Measles) IgG Ab Index 2.65 OD Ratio >1.09 06/20/2016 8:00am 9:03pm Measles IgG performed at [facility] Reference Lab, [facility] [place] [address] Apprentice Jockey Kwesi Wheatley DO Mumps Virus IgG Antibody Positive 06/20/2016 8:00am 06/21/2016 9: 03pm Mumps IgG Antibody Index 2.07 OD Ratio >1.09 06/20/2016 8:00am 2016 9:03pm Mumps IgG performed at [facility] Reference Lab, [facility] [place] [address] Apprentice Jockey Kwesi Wheatley DO Varicella-Zoster IgG Antibody Positive 06/20/2016 8:00am 2016 9:04pm Varicella-Zoster IgG Ab Index Value 2.03 OD Ratio >1.09 06/20/2016 8: 00am 06/21/2016 9:04pm Varicella Zoster IGG performed at [facility] Reference Lab, [address] [place] [address] Apprentice Jockey Kwesi Wheatley DO Measles/Mumps/Rubella Immunity - 06/20/2016 8:00am 06/21/2016 9: 15pm . <0.91=Negative . 0.91 - 1.09=Equivocal . >1.09=Positive Positive results suggest response to immunization or prior exposure. Measles IgG performed at [facility], [address] [place] [address] Apprentice Jockey Kwesi Wheatley DO Magnesium Level 1.9 MG/DL 1.6-2.3 06/30/2016 9:35am 06/30/2016 9:51am Thyroid Stimulating Hormone (TSH) 0.52 MIU/L 0.47-4.68 06/30/2016 9: 35am 06/30/2016 10:21am Influenza Type A Antigen NEGATIVE NEGATIVE 06/30/2016 9:37am 2016 10:14am Negative for Flu A protein antigen. Assay sensitivity is 90%. Influenza Type B Antigen NEGATIVE NEGATIVE 06/30/2016 9:37am 2016 10:14am Negative for Flu B protein antigen. Assay sensitivity is 90%. Triiodothyonine (T3) (IMANI) 120 ng/dL 87-178 06/30/2016 9:35am 2016 10:08pm T3 Total performed at [facility], [address] [place] [address] Apprentice Jockey Kwesi Wheatley DO Thyroxine (T4) 8.2 ug/dL 4.8-11.7 06/30/2016 9:35am 06/30/2016 4:03pm Thyroxine (T4) performed at [facility] Reference Lab, [address] [place] [address] Apprentice Jockey Kwesi Wheatley DO White Blood Count 7.1 T/MM3 4.5-11.0 07/04/2016 8:19am 07/04/2016 8: 29am Red Blood Count 4.55 M/MM3 4.00-5.20 07/04/2016 8:19am 07/04/2016 8: 29am Hemoglobin 13.3 GM/DL 12-16 07/04/2016 8:07/04/2016 8:29am Hematocrit 40.3 % 36-46 07/04/2016 8:07/04/2016 8:29am Mean Corpuscular Volume 88.6 UM3 80-100 07/04/2016 8:07/04/2016 8: 29am Mean Corpuscular Hemoglobin 29.2 UUG 26-34 07/04/2016 8:2016 8:29am Mean Corpuscular Hemoglobin Concent 33.0 GM/DL 31-37 07/04/2016 8:07/04/2016 8:29am RDW Standard Deviation 38.5 FL 36.9-50.2 07/04/2016 8:07/04/2016 8 :29am Platelet Count 334 T/MM3 130-400 07/04/2016 8:07/04/2016 8:29am Mean Platelet Volume 9.6 UM3 9.4-12.4 07/04/2016 8:07/04/2016 8: 29am Neutrophils (%) (Auto) 68.7 % H 33-66 07/04/2016 8:07/04/2016 8: 29am Lymphocytes (%) (Auto) 22.6 % L 23-45 07/04/2016 8:07/04/2016 8: 29am Monocytes (%) (Auto) 6.2 % 0-9.0 07/04/2016 8:07/04/2016 8:29am Eosinophils (%) (Auto) 2.1 % 0-4 07/04/2016 8:07/04/2016 8:29am Basophils (%) (Auto) 0.1 % 0-2 07/04/2016 8:07/04/2016 8:29am Immature Granulocyte % (Auto) 0.3 % 0.0-0.5 07/04/2016 8:2016 8:29am Absolute Neutrophils (auto) 4.9 T/MM3 1.8-7.7 07/04/2016 8:2016 8:29am Absolute Lymphocytes (auto) 1.6 T/MM3 1-4.8 07/04/2016 8:2016 8:29am Absolute Monocytes (auto) 0.4 T/MM3 0-0.8 07/04/2016 8:19am 07/04/2016 8:29am Absolute Eosinophils (auto) 0.2 T/MM3 0-0.5 07/04/2016 8:am 2016 8:29am Absolute Basophils (auto) 0.0 T/MM3 0-0.2 07/04/2016 8:07/04/2016 8:29am Absolute Immature Granulocyte (auto 0.02 T/MM3 0.00-0.03 07/04/2016 8: 07/04/2016 8:29am D-Dimer 241 NG/ML H 0-230 07/04/2016 8:07/04/2016 8:49am <230 NG/ ML D-DU=PRESUMPTIVE NEGATIVE FOR PE OR DVT >230 NG/ML D-DU=ADDITIONAL EVAL FOR PE OR DVT RECOMMENDED Icterus Index < 2 0-7 07/04/2016 8:07/04/2016 8:41am Chemistry Specimen Hemolysis < 15 0-25 07/04/2016 8:07/04/2016 8 :41am 0-25: Specimen Exhibited No Hemolysis. Turbidity < 20 0-20 07/04/2016 8:07/04/2016 8:41am Sodium Level 142 MEQ/L 134-144 07/04/2016 8:07/04/2016 8:41am Potassium Level 4.3 MEQ/L 3.6-5 07/04/2016 8:07/04/2016 8:41am Chloride Level 105 MEQ/L 98-107 07/04/2016 8:07/04/2016 8:41am Carbon Dioxide Level 24 MEQ/L 22-30 07/04/2016 8:07/04/2016 8: 41am Anion Gap 13 MEQ/L 5-15 07/04/2016 8:07/04/2016 8:41am Blood Urea Nitrogen 17.0 MG/DL 7-07/04/2016 8:07/04/2016 8: 41am Creatinine 0.9 MG/DL 0.7-1.2 07/04/2016 8:07/04/2016 8:41am BUN/Creatinine Ratio 19 RATIO 6-26 07/04/2016 8:07/04/2016 8:41am Glomerular Filtration Rate Calc 71 07/04/2016 8:07/04/2016 8: 41am Glucose Level 117 MG/DL H 65-110 07/04/2016 8:07/04/2016 8:41am Calculated Osmolality 276 MOSM/KG 261-280 07/04/2016 8:07/04/2016 8:41am Calcium Level 9.6 MG/DL 8.4-10.2 07/04/2016 8:07/04/2016 8:41am Total Bilirubin 0.90 MG/DL 0.20-1.30 07/04/2016 8:07/04/2016 8: 41am Alkaline Phosphatase 105 U/L 38-126 07/04/2016 8:07/04/2016 8: 41am Total Protein 7.3 G/DL 6.3-8.2 07/04/2016 8:07/04/2016 8:41am Albumin 4.0 G/DL 3.5-5.0 07/04/2016 8:07/04/2016 8:41am Globulin 3.3 G/DL 2.4-3.6 07/04/2016 8:07/04/2016 8:41am Albumin/Globulin Ratio 1.2 RATIO 1.1-2.2 07/04/2016 8:07/04/2016 8 :41am Aspartate Amino Transf (AST/SGOT) 49 U/L H 14-36 07/04/2016 8:07/04 8:41am Alanine Aminotransferase (ALT/SGPT) 178 U/L H 9-52 07/04/2016 8:06/2016 8:41am Troponin I < 0.012 ng/ml 0-0.12 07/04/2016 8:07/04/2016 8:50am Troponin values with a difference of 55% increase from orginal troponin value represent a true biological DELTA value. (%increase Calc=Orginal Troponin value, divided by subsequent Troponin value, multiplied by 100) Urine Collection Type CLEANCATCH-MIDSTREAM 07/04/2016 10:07/04 10:34am Urine Color YELLOW YELLOW 07/04/2016 10:07/04/2016 10:34am Urine Turbidity CLEAR CLEAR 07/04/2016 10:0607/04/2016 10:34am Urine Specific [place] <=1.005 L 1.015-1.025 07/04/2016 10:062016 10:34am Urine pH 5.5 5.0-8.0 07/04/2016 10:0607/04/2016 10:34am Urine Leukocyte Esterase NEGATIVE NEGATIVE 07/04/2016 10:062016 10:34am Urine Nitrite NEGATIVE NEGATIVE 07/04/2016 10:06am 07/04/2016 10: 34am Urine Protein NEGATIVE NEGATIVE 07/04/2016 10:06am 07/04/2016 10: 34am Urine Glucose (UA) NEGATIVE NEGATIVE 07/04/2016 10:0607/04/2016 10 :34am Urine Ketones NEGATIVE NEGATIVE 07/04/2016 10:06am 07/04/2016 10: 34am Urine Urobilinogen 0.2 EU/DL NORMAL 07/04/2016 10:0607/04/2016 10: 34am Urine Bilirubin NEGATIVE NEGATIVE 07/04/2016 10:0607/04/2016 10: 34am Urine Blood NEGATIVE NEGATIVE 07/04/2016 10:0607/04/2016 10:34am Urinalysis Comment MICROSCOPIC NOT IND. 07/04/2016 10:062016 10:34am Name: DONIS WHITTAKER Unit #: [id number] : 1980 Sex: F Admit Date: Loc / Svc: ED Discharge Date: DIAGNOSTIC IMAGING REPORT Report #: [id number] [facility] PATY Garza Indication: ITS.REASON: Tachycardia, Dyspnea , recent surgery PROCEDURE: CTA PULMONARY EMBOLI: Encounter: Initial Comparison: None Technique: Axial CT pulmonary angiographic phase images were performed through the chest after the administration of intravenous contrast. Coronal and Sagittal MIP reconstructed images were created and reviewed. Automated Exposure Control and Iterative Reconstruction dose reducing techniques were utilized. Contrast: Omnipaque 350 74 mL Findings: Pulmonary arteries: Exam is diagnostic to the segmental pulmonary arterial level. Contrast bolus timing and motion artifact precludes adequate evaluation of the subsegmental pulmonary artery level. No filling defects seen to confirm a pulmonary embolus. Other findings: No pneumothorax or pleural effusion. Minimal dependent atelectasis. No focal consolidative pneumonia. The central airways are patent. No pulmonary masses. No axillary or mediastinal adenopathy. The upper abdomen shows no acute findings. Impression: No pulmonary embolus or acute intrathoracic disease process seen. . Procedures No known history of procedures. Encounters Encounter Location Arrival/Admit Date Discharge/Depart Date Attending Provider Departed Emergency Room [facility] 07/04/16 7:21am 07/04/16 11: 45am LAW PATEL DO Registered Clinic [facility] 06/30/16 9:21am KAREL MEYER Registered [facility] 06/20/16 7:35am CLIENT, BILLING Recent Diagnosis
--- OUTSIDE RECORDS SUMMARY | 2016-08-09 09:37 | XMS REPORT ---
Author Author Radha Snow Organization [facility] Address [address] [place] [address] Care Team Providers Care Bottom Presser Name Role Phone Radha Snow Unavailable [phone] PROBLEMS Unknown Problems ALLERGIES Unknown Allergies SOCIAL HISTORY No smoking Hx information available PLAN OF CARE VITAL SIGNS MEDICATIONS Unknown Medications RESULTS No Results PROCEDURES No Known procedures IMMUNIZATIONS No Known Immunizations
--- OUTSIDE RECORDS SUMMARY | 2016-08-09 09:37 | XMS REPORT ---
Author Author Radha Snow Organization [facility] Address [address] [place] [address] Care Team Providers Care Educational Psychologist Name Role Phone Radha Snow Unavailable [phone] PROBLEMS Unknown Problems ALLERGIES Unknown Allergies SOCIAL HISTORY No smoking Hx information available PLAN OF CARE VITAL SIGNS MEDICATIONS Medication Instructions Dosage Frequency Start Date End Date Duration Status Hydrochlorothiazide 25 MG Orally Once a day 1 tablet in the morning 24h Jul, 30 day(s) Active RESULTS No Results PROCEDURES No Known procedures IMMUNIZATIONS No Known Immunizations
--- OUTSIDE RECORDS SUMMARY | 2016-08-09 09:38 | XMS REPORT ---
Author Author Radha Snow Organization [facility] Address [address] [place] [address] Care Team Providers Care Chemist Steroids Name Role Phone Radha Snow Unavailable [phone] PROBLEMS Unknown Problems ALLERGIES Unknown Allergies SOCIAL HISTORY No smoking Hx information available PLAN OF CARE VITAL SIGNS MEDICATIONS Unknown Medications RESULTS No Results PROCEDURES No Known procedures IMMUNIZATIONS No Known Immunizations
--- OUTSIDE RECORDS SUMMARY | 2016-08-09 09:38 | XMS REPORT ---
Author Author Radha Snow Organization [facility] Address [address] [place] [address] Care Team Providers Care Crabber Name Role Phone Radha Snow Unavailable [phone] PROBLEMS Unknown Problems ALLERGIES Unknown Allergies SOCIAL HISTORY No smoking Hx information available PLAN OF CARE VITAL SIGNS MEDICATIONS Unknown Medications RESULTS No Results PROCEDURES No Known procedures IMMUNIZATIONS No Known Immunizations
[2016-08-09 09:46] VITALS: Ht 167.6 cm; Wt 109.3 kg
[2016-08-09] MEDS ORDERED: MAGN100P3 PO (09:59)
[2016-08-09] MEDS ORDERED: VORT10TA PO (09:59)
[2016-08-09] MEDS ORDERED: CETI-115 PO (09:59)
[2016-08-09] MEDS ORDERED: CHOL3000 PO (09:59)
[2016-08-09] MEDS ORDERED: NORMAL SALINE 500 ML IV ONE (10:30)
--- NOTE | 2016-08-09 10:45 | NUR ---
TEARFUL ABOUT HEALTH SX
--- OUTSIDE RECORDS SUMMARY | 2016-08-09 10:52 | XMS REPORT | Continuity of Care Document ---
Author Author [facility] Organization [facility] Address Unknown Phone Unavailable Allergies Active Description [...] Status Pt. Type Provider Facility Loc./Unit Complaint [id number] 07/06/2016 08:00:00 2016 08:00:00 CAN Outpatient Radha Snow MD [facility] W.NM [id number] 02/10/2016 15:29:00 2015 15:29:00 DIS Outpatient Radha Snow MD [facility] W.RAC [id number] 02/08/2016 14:40:00 ACT Outpatient Radha Snow MD [facility] W.RAC
--- NOTE | 2016-08-09 11:02 | NUR ---
ACTIVITY AMB TO BR. SAYS SHE IS NOT DIZZY
[2016-08-09 11:03] LABS: BASOPHILS % (AUTO) 0.1 % (0-2); EOSINOPHILS % (AUTO) 0.1 % (0-4); HCT - HEMATOCRIT 38.4 % (36-46); HGB - HEMOGLOBIN 12.8 GM/DL (12-16); IMMATURE GRANULOCYTE # (AUTO) 0.01 T/MM3 (0.00-0.03); IMMATURE GRANULOCYTE % (AUTO) 0.1 % (0.0-0.5); LYMPHOCYTES # (AUTO) 1.8 T/MM3 (1-4.8); LYMPHOCYTES % (AUTO) 24.8 % (23-45); MEAN CORPUSCULAR HGB 28.9 UUG (26-34); MEAN CORPUSCULAR HGB CONC(MCHC 33.3 GM/DL (31-37); MEAN CORPUSCULAR VOLUME 86.7 UM3 (80-100); MEAN PLATELET VOLUME 9.6 UM3 (9.4-12.4); MONOCYTES # (AUTO) 0.5 T/MM3 (0-0.8); MONOCYTES % (AUTO) 6.9 % (0-9.0); RED BLOOD COUNT 4.43 M/MM3 (4.00-5.20); WBC - WHITE BLOOD COUNT 7.4 T/MM3 (4.5-11.0)
[2016-08-09 11:13] LABS: ALBUMIN 4.1 G/DL (3.5-5.0); ALBUMIN/GLOBULIN RATIO 1.4 RATIO (1.1-2.2); ALKALINE PHOSPHATASE 66 U/L (38-126); ALT (SGPT) 56 U/L (9-52); ANION GAP 11 MEQ/L (5-15); AST (SGOT) 29 U/L (14-36); BUN/CREATININE RATIO 19 RATIO (6-26); CALCIUM 9.6 MG/DL (8.4-10.2); CHLORIDE 109 MEQ/L (98-107); CO2 - CARBON DIOXIDE 25 MEQ/L (22-30); CREATININE 0.9 MG/DL (0.7-1.2); GLOMERULAR FILTRATION RATE 71; GLUCOSE 111 MG/DL (65-110); POTASSIUM 4.2 MEQ/L (3.6-5); SODIUM 145 MEQ/L (134-144)
[2016-08-09 11:14] LABS: BLOOD, URINE NEGATIVE (NEGATIVE); COLOR,URINE YELLOW (YELLOW); LEUKOCYTE ESTERASE ,URINE NEGATIVE (NEGATIVE); NITRITE,URINE NEGATIVE (NEGATIVE); UROBILINOGEN,URINE 0.2 EU/DL (NORMAL)
--- NOTE | 2016-08-09 11:20 | NUR ---
TO [facility] PER CART
--- NOTE | 2016-08-09 11:37 | NUR ---
RETURNED FROM [facility]
[2016-08-09] MEDS ORDERED: GADOBUTROL 10mMol/10ml INJECTION IV ONE (11:55)
[2016-08-09] MEDS ORDERED: SALINE FLUSH 10ml SYRINGE ONE (11:55)
--- NOTE | 2016-08-09 11:59 | DI ---
EXAM: ABDOMEN ACUTE (INC. CHEST) DICTATION LOCATION: [facility] INDICATION: ITS.REASON: felt something drop in her abdomen COMPARISON STUDY: None available. FINDINGS: Chest: The heart size is normal. The lungs are clear. Abdomen: Nonobstructive bowel gas pattern. No intraperitoneal free air. There is posterior and gas within the small and large bowel loops with gas in the distal colon/rectum. Cholecystectomy clips noted. Skeletal Structures: The visualized skeletal structures are within normal limits for the patient's age. IMPRESSION: 1. Nonobstructive bowel gas pattern. 2. No acute cardiopulmonary process. .
--- NOTE | 2016-08-09 12:03 | DI ---
EXAM: CT HEAD W/O CONTRAST LOCATION OF DICTATION: [facility] HISTORY: ITS.REASON: dizziness COMPARISON: No prior studies available for comparison. TECHNIQUE: Multiple contiguous axial images were obtained of the head without contrast. Iterative Reconstruction dose reducing technique was utilized. FINDINGS: The ventricles and sulci are not dilated. The posterior margins of the lateral ventricles are slightly asymmetric area there is questionable mass effect within the right occipital lobe. There is some decreased signal also demonstrated within the right occipital lobe white matter which could reflect edema. Recommend MRI with and without contrast to exclude underlying neoplasm/mass. There is no acute intracranial hemorrhage. There is no midline shift. The basal cisterns are patent. The paranasal sinuses and mastoid aerosols are clear. Globes and orbits are normal. Impression: 1. Slightly decreased signal within the right occipital lobe possibly representing edema. There is questionable mass effect within the right occipital lobe as well. Although the findings may reflect artifact, recommend MRI with and without contrast to exclude underlying neoplasm. 2. No evidence for midline shift. No intraparenchymal or extra-axial hemorrhage. .
--- NOTE | 2016-08-09 12:05 | NUR ---
TO MRI PER WC
--- NOTE | 2016-08-09 12:40 | NUR ---
BACK FROM IMAGING
--- NOTE | 2016-08-09 12:41 | NUR ---
ELIMINATION PATIENT UP TO BR TO VOID.
--- NOTE | 2016-08-09 12:58 | NUR ---
REPORT TO KYM JEONG
--- NOTE | 2016-08-09 13:03 | DI ---
EXAM: MRI BRAIN W/WO CONTRAST LOCATION OF DICTATION: [facility] HISTORY: ITS.REASON: poss occipital tumor COMPARISON: No prior studies available for comparison. TECHNIQUE: Multiplanar, multisequence, MR imaging of the head with and without contrast was acquired. Contrast: 15 mL of Multihance FINDINGS: The ventricles are of normal size, shape, and contour for the patient's age. No abnormal signal within the white matter. There is some mild nonspecific asymmetry about the occipital lobes likely resulting in findings on prior CT scan. The brain stem, cerebellum, and cerebral hemispheres otherwise have a normal morphologic appearance as well as MR signal intensity on all pulse sequences. Following intravenous administration of contrast, no areas of abnormal enhancement are evident. There are no areas of restricted diffusion to suggest an acute infarct. There is no evidence of an intracranial mass lesion, intracranial hemorrhage, or hydrocephalus. The visualized portions of the orbits, calvarium, paranasal sinuses, and skull base demonstrate no significant abnormality. IMPRESSION: Essentially unremarkable contrast-enhanced MRI of the brain without evidence for mass effect or abnormal enhancement. .
--- NOTE | 2016-08-09 13:07 | ERPDOC ---
Departure Disposition Decision Date: August 09, 2016 Disposition Decision Time: 13:06 Disposition: 01 DISCHARGED HOME, SELF-CARE Impression Impression Impression: Primary Impression: Dizziness Severity: Moderate Condition: Improved Seen By: Physician only Referrals: DONN GARCIA MD (Family) 1 Day Patient Instructions: Dizziness (ED) Problems/Meds/Labs Reviewed?: Yes Medications reviewed and manag: Yes Departure Forms: Return to Work/School Permit Return to Work/School Date: August 10, 2016 Follow up care ordered?: Yes Mental Status: Alert, Oriented HPI - General Medical General Chief Complaint: Dizzy Stated Complaint: DIZZY Time Seen by Provider: 10:09 Source: patient (Patient presents to the ER with muliple complaints. Patient states this morning while driving became dizzy, developed right sided facial parasthesia, and "[place] Foggy", forcing her to stop, and call EMS. Patient states she's not felt well for several months, following a Cholecystectomy, and "Nobody is taking me seriously!" According to the patient she was evaluated by her PCP a few days ago, expressed similar complaints, and was told to increase her Ativan. ), other (Patient arrived complaining of feeling "Foggy", but her other symptoms have resolved. Patient also reports feeling as if something "dropped" in her abdomen) Exam Limitations: no limitations [facility] - General Medical Occurred At: home Onset: Changing over time Duration: 1-3 hrs Date Last Known Well: August 09, 2016 Time Last Known Well: 09:00 Last Known Well Approximated: Yes Pain Scale: Now & Worst: 0/10 Modifying Factors: IMPROVES WITH: other Associated Symptoms: malaise, DENIES: chest pain, cough, diaphoresis, fever/ chills, loss of appetite, nausea/vomiting, rash, seizure, shortness of breath, syncope, weakness Hx of Similar Symptoms: Yes Allergies: Coded Allergies: diphenhydramine (Verified Allergy, Severe, 08/09/16) svt diltiazem (Verified Allergy, Unknown, RASH, 08/09/16) Uncoded Allergies: Sulfa eyedrops (Allergy, Mild, 07/06/13) Past History Past Medical History Metabolic: hypercholesterolemia, hypertension Hx Echocardiogram: No GI: GERD Psychological: anxiety, other Surgical History General: gallbladder Family History Family PMH: FOUND: other Vaccines Hx Influenza Vaccination: Yes Social History Smoking Status: Unknown if ever smoked Does patient use chewing tobac: No Second Hand Exposure: No Substance Use Type: does not use Alcohol Intake: none Housing: house Service: No Current Occupational Status: employed Occupational Hazard: No Advance Directives: Yes Full Code Record Review Pertinent history updated: Yes Review of Systems Constitutional Constitutional: DENIES: chills, fever Eyes Lids/Accessories: DENIES: erythema, swelling ENMT Ears: DENIES: erythema, pain Balance: DENIES: ataxia, vertigo Sinuses: DENIES: congestion, rhinorrhea Mouth/Throat: DENIES: sore throat Cardiovascular Cardiac: DENIES: chest pain, dyspnea on exertion, orthopnea Rhythm/Rate: DENIES: tachycardia Pulmonary Respiratory: DENIES: cough, dyspnea, sputum GI Upper Abdomen: DENIES: nausea, pain, vomiting Lower Abdomen: DENIES: constipation, diarrhea, pain General: DENIES: dysuria Musculoskeletal General: DENIES: cramps, joint pain, joint swelling, pain, tenderness, weakness Integumentary Skin: DENIES: color change, itching, rash Neurological General: DENIES: ataxia, change in strength, headache, numbness, poor coordination, seizures, syncope, vertigo, weakness Psychiatric Psychiatric: DENIES: anxiety, depression, nervousness Hematologic/Lymphatic Hematologic/Lymphatic: DENIES: anemia Allergic/Immunological Allergic/Immunoligical: DENIES: sneezing All other Systems All Other Systems: Reviewed and Negative Physical Exam General General Nourishment: well nourished, well developed, appears stated age, adult General Body Habitus: well groomed Vitals and Pain First Documented Vital Signs Date Time Temp Pulse Resp B/P Pulse Ox O2 Delivery O2 Flow Rate FiO2 08/09/16 09:31 98.6 82 16 149/91 99 Room Air Weight: Kilograms: 109.300 Height (feet): 5 Height (inches): 6.00 Triage Pain Scale: RN VS reviewed by Provider: Yes Eyes (brief) Eyes Brief: found: EOMI, PERRL ENMT (brief) ENMT Brief: FOUND: TM clear, TM good light reflex, mucosa moist, NOT FOUND: pharnyx erythema Neck (brief) Neck: FOUND: trachea midline, NOT FOUND: adenopathy, tenderness, tracheal deviation Respiratory (brief) Respiratory: FOUND: clear all lopez, equal bilaterally Cardiovascular (brief) Cardiac: FOUND: regular rate, regular rhythm Capillary Refill: <2 sec Pulses: all distal extremities, equal, strong Abdomen (brief) Abdominal Brief: FOUND: bowel normo active x4, soft, NOT FOUND: distended, tender Lymphatic (brief) Lymphatic Brief: NOT FOUND: adenopathy Musculoskeletal (brief) Musculoskeletal Brief: NOT FOUND: spasm, tenderness Integumentary (brief) Integumentary Brief: FOUND: pink, warm Neurologic (brief) Neurological Brief: FOUND: CN w/o gross def to obs, gait w/o gross def to obs, motor-no gross deficits, sensory-no gross deficits, NOT FOUND: ataxia Psychiatric (brief) Psychiatric Brief: FOUND: alert, attentive, normal affect, oriented Differential Diagnoses Considering: Acute VA, CVA, Depression, Encephalitis, Hypo/Hyperglycemia, Hypo/ Hyperkalemia, Hypo/Hypernatremia, UTI, Other Progress Results/Orders Orders Procedure Category Date Status Time Iv Lock (Ed Only) EDM 08/09/16 Transmitted 10:21 Cbc W/Auto LAB 08/09/16 Complete Diff-Reflex Manual 10:21 Cmp - Comprehensive LAB 08/09/16 Complete Metabolic 10:21 Troponin I W LAB 08/09/16 Complete Hemolysis Index 10:21 EKG EKG 08/09/16 Taken 10:21 Ct Head W/O Contrast CT 08/09/16 Resulted 10:21 Ua, Dip Wreflex LAB 08/09/16 Complete Microsc & Paralegals 10:21 LAB 08/09/16 Complete Qualitative, Urine 10:21 Abdomen Acute (Inc. RAD 08/09/16 Resulted Chest) Normal Saline (Ns) PHA 08/09/16 Complete 10:30 Mri Brain W/Wo MRI 08/09/16 Resulted Contrast Gadobutrol (Gadavist) PHA 08/09/16 Complete 11:55 Saline Flush (Iv PHA 08/09/16 Complete Flush) 11:55 Lab Results Laboratory Tests Test 08/09/16 10:55 08/09/16 11:05 White Blood Count 7.4T/MM3 Red Blood Count 4.43M/MM3 Hemoglobin 12.8GM/DL Hematocrit 38.4% Mean Corpuscular Volume 86.7UM3 Mean Corpuscular Hemoglobin 28.9UUG Mean Corpuscular Hemoglobin Concent 33.3GM/DL RDW Standard Deviation 38.4FL Platelet Count 325T/MM3 Mean Platelet Volume 9.6UM3 Immature Granulocyte % (Auto) 0.1% Neutrophils (%) (Auto) 68.0% Lymphocytes (%) (Auto) 24.8% Monocytes (%) (Auto) 6.9% Eosinophils (%) (Auto) 0.1% Basophils (%) (Auto) 0.1% Absolute Immature Granulocyte (auto 0.01T/MM3 Absolute Neutrophils (auto) 5.0T/MM3 Absolute Lymphocytes (auto) 1.8T/MM3 Absolute Monocytes (auto) 0.5T/MM3 Absolute Eosinophils (auto) 0.0T/MM3 Absolute Basophils (auto) 0.0T/MM3 Turbidity < 20 Sodium Level 145MEQ/L Potassium Level 4.2MEQ/L Chloride Level 109MEQ/L Carbon Dioxide Level 25MEQ/L Anion Gap 11MEQ/L Blood Urea Nitrogen 17.0MG/DL Creatinine 0.9MG/DL Glomerular Filtration Rate Calc 71 BUN/Creatinine Ratio 19RATIO Glucose Level 111MG/DL Calculated Osmolality 282MOSM/KG Calcium Level 9.6MG/DL Total Bilirubin 0.60MG/DL Icterus Index < 2 Aspartate Amino Transf (AST/SGOT) 29U/L Alanine Aminotransferase (ALT/SGPT) 56U/L Alkaline Phosphatase 66U/L Troponin I < 0.012ng/ml Total Protein 7.0G/DL Albumin 4.1G/DL Globulin 2.9G/DL Albumin/Globulin Ratio 1.4RATIO Chemistry Specimen Hemolysis < 15 Urine Collection Type Cleancatch-midstream Urine Color Yellow Urine Turbidity Clear Urine pH 5.5 Urine Specific [place] 1.020 Urine Protein Negative Urine Glucose (UA) Negative Urine Ketones Negative Urine Blood Negative Urine Nitrite Negative Urine Bilirubin Negative Urine Urobilinogen 0.2EU/DL Urine Leukocyte Esterase Negative Urinalysis Comment Microscopic not ind. Urine Test Negative Medications Current ED Medications Sodium Chloride (NS) 500 ml @ 250 mls/hr Q2H ONCE IV Last administered on t 10:58; Start 08/09/16 at 10:30; Stop 08/09/16 at 12:29; Status DC Gadobutrol (Gadavist) STK-MED ONCE IV ; Start 08/09/16 at 11:55; Stop 08/09/16 at 11:56; Status DC Sodium Chloride (Iv Flush) 10 ml STK-MED ONCE .ROUTE ; Start 08/09/16 at 11:55; Stop 08/09/16 at 11:56; Status DC Progress Progress Patient is feeling better, wanting to go home EKG EKG : Rate: 60-100 Rhythm: sinus [place]: normal QRS: normal Intervals: normal ST/T: normal Interpreted by: signing physician EKG ScImage/Picomm EKG interpreted in ScImage/Pic: No Xray Xray : Reason for Exam: "[place] as if something dropped in her abdomen" Xray: Abdominal Series Interpretation: Normal, Reviewed Written Report CT Date CT Interpreted for [place]: August 09, [address] Interpreted for Stroke: 11:59 CT : Reason for Exam: Dizziness CT: Head no contrast Interpretation: Abnormal, Reviewed Written Report (Recommends MRI Brain with and without contrast) MRI MRI : MRI: Head MRI Interpretation: Normal, Reviewed Written Report LAW PATEL DO August 09, 2016 13:07
[2016-08-09 13:15] VITALS: BP 125/70; PULSE 88; RESP 16; TEMP 98.3; O2SAT 98
== END 2016-08-09 13:15 | disposition home or self-care (01) ==
LOC: ED 09:31
DX: R42 Dizziness and giddiness (principal); R20.2 Paresthesia of skin; R53.81 Other malaise; I10 Essential (primary) hypertension
CPT/HCPCS: 36415; 80053; 81003; 81025; 84484; 85025; 93005

== ENCOUNTER → 2016-08-10 | Outpatient (CLI) | payer BC ==
[~2016-08-10] MED LIST changes: +CETI-115 PO; +CHOL3000 PO; -DILT30TA37 PO; +MAGN100P3 PO; +VORT10TA PO; -[UNRECOGNIZED DRUG - OTHER] PO
[2016-08-10 07:26] LABS: BASOPHILS % (AUTO) 0.1 % (0-2); EOSINOPHILS % (AUTO) 0.4 % (0-4); HCT - HEMATOCRIT 40.3 % (36-46); HGB - HEMOGLOBIN 13.6 GM/DL (12-16); IMMATURE GRANULOCYTE # (AUTO) 0.01 T/MM3 (0.00-0.03); IMMATURE GRANULOCYTE % (AUTO) 0.1 % (0.0-0.5); LYMPHOCYTES # (AUTO) 1.9 T/MM3 (1-4.8); LYMPHOCYTES % (AUTO) 27.8 % (23-45); MEAN CORPUSCULAR HGB 29.2 UUG (26-34); MEAN CORPUSCULAR HGB CONC(MCHC 33.7 GM/DL (31-37); MEAN CORPUSCULAR VOLUME 86.5 UM3 (80-100); MEAN PLATELET VOLUME 9.6 UM3 (9.4-12.4); MONOCYTES # (AUTO) 0.4 T/MM3 (0-0.8); MONOCYTES % (AUTO) 6.5 % (0-9.0); NEUTROPHILS #(AUTO)-ABSOLUTE 4.4 T/MM3 (1.8-7.7); NEUTROPHILS % (AUTO) 65.1 % (33-66); RED BLOOD COUNT 4.66 M/MM3 (4.00-5.20); WBC - WHITE BLOOD COUNT 6.8 T/MM3 (4.5-11.0)
[2016-08-10 07:34] LABS: ALBUMIN 4.5 G/DL (3.5-5.0); ALBUMIN/GLOBULIN RATIO 1.6 RATIO (1.1-2.2); ALKALINE PHOSPHATASE 66 U/L (38-126); ALT (SGPT) 60 U/L (9-52); ANION GAP 13 MEQ/L (5-15); AST (SGOT) 29 U/L (14-36); BUN/CREATININE RATIO 20 RATIO (6-26); CALCIUM 9.5 MG/DL (8.4-10.2); CHLORIDE 106 MEQ/L (98-107); CO2 - CARBON DIOXIDE 24 MEQ/L (22-30); CREATININE 0.9 MG/DL (0.7-1.2); GLOMERULAR FILTRATION RATE 71; GLUCOSE 110 MG/DL (65-110); POTASSIUM 4.3 MEQ/L (3.6-5); SODIUM 143 MEQ/L (134-144); TOTAL PROTEIN 7.4 G/DL (6.3-8.2)
[2016-08-10 07:51] LABS: PROLACTIN 21.1 NG/ML
[2016-08-10 08:07] LABS: HEMOGLOBIN A1C 5.6 % (6.1-7.9)
[2016-08-12 01:34] LABS: IRON 69 UG/DL (37-170)
[2016-08-12 10:46] LABS: IRON % SAT (TRANSF %SAT)(CALC) 19 % (9-55); TOTAL IRON BINDING CAPACITY 365 UG/DL (261-497)
[2016-08-16 01:00] LABS: LDL CHOLESTEROL,CALCULATED 136.8 (66-159); RISK FACTOR 5.5 RATIO (0-4.0); VLDL CHOLESTEROL 17.2 MG/DL (0-28)
== END ==
LOC: LAB 07:02
PROVIDERS: ATTEND Internal Medicine Cardiovascular Disease
DX: D35.2 Benign neoplasm of pituitary gland (principal); E55.9 Vitamin D deficiency, unspecified
CPT/HCPCS: 36415; 80053; 80061; 82248; 82306; 82533; 82626; 83001; 83002; 83036; 83540; 83550; 84146; 84403; 84443; 85025

== ENCOUNTER → 2016-08-19 | Outpatient (CLI) | payer BC ==
[~2016-08-19] MED LIST changes: +ACET-62 PO; +IOHEXOL 300 MG/ML 100ml INJECTION ONE; +NORMAL SALINE 100 ML ONE; +SALINE FLUSH 10ml SYRINGE ONE; +VENL75CA60 PO
--- NOTE | 2016-08-19 13:32 | DI ---
Indication: ITS.REASON: RT UPPER QUADRANT PAIN PROCEDURE: CT ABD/PELVIS W/CONTRAST ONLY: Encounter: Initial Comparison: None Technique: Axial CT images were performed through the abdomen and pelvis after the administration of intravenous contrast. Coronal and sagittal two-dimensional reformats. Automated Exposure Control and Iterative Reconstruction dose reducing techniques were utilized. Contrast: Omnipaque 300 100 mL Findings: The lung bases are clear. The liver is normal. The gallbladder is surgically absent. Spleen, pancreas and adrenal glands are within normal limits. The kidneys are normal. No abdominal or pelvic lymphadenopathy. Bladder is decompressed. Uterus and ovaries appear normal. No free fluid. No evidence of a bowel obstruction. Colon is decompressed. The appendix is gas-filled and normal. Impression: No acute disease process seen. .
== END ==
LOC: IMA 11:32
PROVIDERS: ATTEND Family Medicine
DX: R10.11 Right upper quadrant pain (principal)

== ENCOUNTER 2016-08-22 13:07 | Emergency (ER) | payer BC ==
[~2016-08-22] VITALS: Ht 165.1 cm; Wt 105.9 kg
[~2016-08-22 13:07] MED LIST changes: -ACET-62 PO; -IOHEXOL 300 MG/ML 100ml INJECTION ONE; -NORMAL SALINE 100 ML ONE; -SALINE FLUSH 10ml SYRINGE ONE; -VENL75CA60 PO
--- OUTSIDE RECORDS SUMMARY | 2016-08-22 13:13 | XMS REPORT ---
Author Author Radha Snow Organization [facility] Address [address] [place] [address] Care Team Providers Care [employer] Sizer And Sorter Name Role Phone Radha Snow Unavailable [phone] PROBLEMS Type Condition ICD9-CM Code [id number] Code Onset Dates Condition Status SNOMED Code Problem Dyslipidemia E78.5 Active 819081836 Problem Anxiety F41.9 Active 29907719 Problem Dizziness R42 Active 054486453 Problem Vitamin D deficiency E55.9 Active 01169726 ALLERGIES Unknown Allergies SOCIAL HISTORY No smoking Hx information available PLAN OF CARE VITAL SIGNS MEDICATIONS Medication Instructions Dosage Frequency Start Date End Date Duration Status Lab Order Orders as directed August, Active RESULTS No Results PROCEDURES No Known procedures IMMUNIZATIONS No Known Immunizations
--- OUTSIDE RECORDS SUMMARY | 2016-08-22 13:13 | XMS REPORT | Continuity of Care Document ---
Author Author [facility] Organization [facility] Address Unknown Phone Unavailable Support Name Relationship Address Phone LAW PATEL DO Caregiver [address] [place] [address] Unavailable DONN GARCIA MD Caregiver [address] [place] [address] Unavailable ROYA RAMIREZ Next Of Kin [address] [place] [address] Insurance Providers Guarantor Donis Whittaker Address [address] [place] [address] Email [id number] [facility] Policy Number [id number] Subscriber's Name HusseinDonis Valencia Relationship 18 Self Chief Complaint and Reason for Visit Chief Complaint Dizzy Reason for Visit Dizziness Problems Active Problems Medical Problem Onset Date Status HTN (hypertension) Unknown Past Problems Medical Problem Onset Date Dizziness Unknown Malignant hypertension Unknown Palpitations Unknown Medications Current Home Medications Medication Dose Units Route Directions Days Qty Instructions Start Date Atorvastatin Calcium (Lipitor) 20 Mg Tablet 20 Mg Oral Bedtime Cetirizine Hcl (Zyrtec) 10 Mg Tablet 10 Mg Oral Daily as needed for Allery Symptoms 08/09/16 Cholecalciferol (Vitamin D3) (Vitamin D3) 3,000 Unit Tablet 6,000 Unit Oral Daily 08/09/16 Lorazepam (Ativan) 0.5 Mg Tablet 0.5 Mg Oral Twice A Day as needed for Prn Orders 02/02/16 Magnesium Citrate 100 Gm Powder 325 Mg Oral Bedtime 08/09/16 Vortioxetine Hydrobromide (Brintellix) 10 Mg Tablet 10 Mg Oral Daily 08/09/16 Past Home Medications Medication Directions Ordered Status Acyclovir 400 Mg Tablet, 400 Mg Oral Twice A Day 07/07/13 Discontinued Docusate Sodium (Colace) 100 Mg Capsule, 100 Mg Oral Twice A Day 07/07/13 Discontinued Vits W-Ca,Fe,Fa(<1MG) () 1 Tab Tablet, 1 Tab Oral Daily 09/14 Discontinued Social History Social History Problem Response Recorded Date/Time Onset Date Status Hx Substance Use No 08/09/2016 9:46am Not Applicable Not Applicable Hx Alcohol Use N NONE 08/09/2016 9:46am Not Applicable Not Applicable Has the pt used tobacco in the last 12 months No 07/07/2013 2:17am Not Applicable Not Applicable Query Response Start Date Stop Date Smoking Status Former smoker Hospital Discharge Instructions No hospital discharge instructions. Plan of Care Discharge Date 08/09/16 1:15pm Disposition 01 DISCHARGED HOME, SELF-CARE Condition at Discharge Improved Instructions/Education Provided Dizziness (ED) Forms Provided Return to Work/School Permit Prescriptions See Medication Section Referrals DONN GARCIA MD Order Date: 1 Day Address: [address] [place] [address] [place] [address] Note: Care Plan and Goals Physician Care Plan Problem: 1. Dizziness Goal: 1. Follow up with primary care provider in 1 day for recheck 2. Stand Slowly, if possible with assistance 3. No Driving until cleared by your Primary Care Physician 4. Return to the ER as needed Instructions: 1. Take medications and follow care plan as discussed/written Functional Status No functional status results. Allergies, Adverse Reactions, Alerts Allergen Type Severity Reaction Status Last Updated Diltiazem Allergy Unknown RASH Active 08/09/16 Diphenhydramine Allergy Severe Active 08/09/16 Sulfa eyedrops Allergy Mild Active 07/06/13 Immunizations Query Response on File Recorded Date/Time Hx Influenza Vaccination Yes 07/07/13 2:17am Hx Influenza Vaccination Yes 07/07/13 2:17am Influenza Vaccine Hx 2015 08/09/16 9:46am Vital Signs Acute Vital Signs Vital Response Date/Time Temperature (Fahrenheit) 98.3 deg F (96.8 - 99.1) 08/09/2016 1:15pm Temperature (Calculated Celsius) 36.83091 degrees C (36.0 - 37.3) 08/09/2016 1:15pm Pulse Rate (adult) 88 bpm (60 - 100) 08/09/2016 1:15pm Respiratory Rate 16 breaths/min (10 - 20) 08/09/2016 1:15pm O2 Sat by Pulse Oximetry 98 % (90 - 100) 08/09/2016 1:15pm Blood Pressure 125/70 mm Hg 08/09/2016 1:15pm Height (Feet) 5 feet 08/09/2016 9:46am Height (Inches) 6.00 inches 08/09/2016 9:46am Weight (Kilograms) 109.300 kg 08/09/2016 9:46am Body Mass Index (BMI) 38.0 08/09/2016 9:46am Results Laboratory Results Test Name Result Units [...] 06/20/2016 8:00am 9:03pm Measles IgG performed at [facility] Reference Lab, [facility] [place] [address] Front Desk Associate Kwesi Wheatley DO Mumps Virus IgG Antibody Positive 06/20/2016 8:00am 06/21/2016 9: 03pm Mumps IgG Antibody Index 2.07 OD Ratio >1.09 06/20/2016 8:00am 2016 9:03pm Mumps IgG performed at [facility] Reference Lab, [facility] [place] [address] Front Desk Associate Kwesi Wheatley DO Varicella-Zoster IgG Antibody Positive 06/20/2016 8:00am 2016 9:04pm Varicella-Zoster IgG Ab Index Value 2.03 OD Ratio >1.09 06/20/2016 8: 00am 06/21/2016 9:04pm Varicella Zoster IGG performed at [facility] Reference Lab, [address] [place] [address] Front Desk Associate Kwesi Wheatley DO Measles/Mumps/Rubella Immunity - 06/20/2016 8:00am 06/21/2016 9: 15pm . <0.91=Negative . 0.91 - 1.09=Equivocal . >1.09=Positive Positive results suggest response to immunization or prior exposure. Measles IgG performed at [facility] Reference Lab, [address] [place] [address] Front Desk Associate Kwesi Wheatley DO Thyroid Stimulating Hormone (TSH) 0.52 MIU/L 0.47-4.68 [...] 9:35am 2016 10:08pm T3 Total performed at [facility], [address] [place] [address] Front Desk Associate Kwesi Wheatley DO Thyroxine (T4) 8.2 ug/dL 4.8-11.7 06/30/2016 9:35am 06/30/2016 4:03pm Thyroxine (T4) performed at [facility] Reference Lab, [address] [place] [address] Front Desk Associate Kwesi Wheatley DO D-Dimer 241 NG/ML H 0-230 07/04/2016 8:19am 07/04/2016 8:49am <230 NG/ ML D-DU=PRESUMPTIVE NEGATIVE FOR PE OR DVT >230 NG/ML D-DU=ADDITIONAL EVAL FOR PE OR DVT RECOMMENDED Unconjugated Bilirubin 0.30 MG/DL 0.00-1.10 07/11/2016 9:2016 9:32am Conjugated Bilirubin 0.00 MG/DL 0.00-0.30 07/11/2016 9:07/11/2016 9:32am Magnesium Level 2.0 MG/DL 1.6-2.3 07/11/2016 9:07/11/2016 9:32am 25-Hydroxy Vitamin D3 46 ng/mL 07/11/2016 9:07/12/2016 4:22pm 25-Hydroxy Vitamin D2 <7 ng/mL 07/11/2016 9:07/12/2016 4:22pm 25-Hydroxy Vitamin D Total 46 ng/mL 30-74 07/11/2016 9:07/12/2016 4:22pm The desirable level of 25-Hydroxy Vitamin D Total(D2 + D3) is 30-74 ng/ mL. A level consistently >200 is potentially toxic. Vitamin D, 25-Hydroxy performed at [facility] Reference Lab, [address] [place] [address] Front Desk Associate Kwesi Wheatley DO White Blood Count 7.4 T/MM3 4.5-11.0 08/09/2016 10:55am 08/09/2016 11: 03am Red Blood Count 4.43 M/MM3 4.00-5.20 08/09/2016 10:55am 08/09/2016 11: 03am Hemoglobin 12.8 GM/DL 12-16 08/09/2016 10:55am 08/09/2016 11:03am Hematocrit 38.4 % 36-46 08/09/2016 10:55am 08/09/2016 11:03am Mean Corpuscular Volume 86.7 UM3 80-100 08/09/2016 10:55am 08/09/2016 11:03am Mean Corpuscular Hemoglobin 28.9 UUG 26-34 08/09/2016 10:55am 2016 11:03am Mean Corpuscular Hemoglobin Concent 33.3 GM/DL 31-37 08/09/2016 10:55am 08/09/2016 11:03am RDW Standard Deviation 38.4 FL 36.9-50.2 08/09/2016 10:55am 08/09/2016 11:03am Platelet Count 325 T/MM3 130-400 08/09/2016 10:55am 08/09/2016 11:03am Mean Platelet Volume 9.6 UM3 9.4-12.4 08/09/2016 10:55am 08/09/2016 11: 03am Neutrophils (%) (Auto) 68.0 % H 33-66 08/09/2016 10:55am 08/09/2016 11: 03am Lymphocytes (%) (Auto) 24.8 % 23-45 08/09/2016 10:55am 08/09/2016 11: 03am Monocytes (%) (Auto) 6.9 % 0-9.0 08/09/2016 10:55am 08/09/2016 11:03am Eosinophils (%) (Auto) 0.1 % 0-4 08/09/2016 10:55am 08/09/2016 11:03am Basophils (%) (Auto) 0.1 % 0-2 08/09/2016 10:55am 08/09/2016 11:03am Immature Granulocyte % (Auto) 0.1 % 0.0-0.5 08/09/2016 10:55am 2016 11:03am Absolute Neutrophils (auto) 5.0 T/MM3 1.8-7.7 08/09/2016 10:55am 2016 11:03am Absolute Lymphocytes (auto) 1.8 T/MM3 1-4.8 08/09/2016 10:55am 2016 11:03am Absolute Monocytes (auto) 0.5 T/MM3 0-0.8 08/09/2016 10:55am 2016 11:03am Absolute Eosinophils (auto) 0.0 T/MM3 0-0.5 08/09/2016 10:55am 2016 11:03am Absolute Basophils (auto) 0.0 T/MM3 0-0.2 08/09/2016 10:55am 2016 11:03am Absolute Immature Granulocyte (auto 0.01 T/MM3 0.00-0.03 08/09/2016 10: 55am 08/09/2016 11:03am Icterus Index < 2 0-7 08/09/2016 10:55am 08/09/2016 11:13am Chemistry Specimen Hemolysis < 15 0-25 08/09/2016 10:55am 08/09/2016 11:13am 0-25: Specimen Exhibited No Hemolysis. Turbidity < 20 0-20 08/09/2016 10:55am 08/09/2016 11:13am Sodium Level 145 MEQ/L H 134-144 08/09/2016 10:55am 08/09/2016 11:13am Potassium Level 4.2 MEQ/L 3.6-5 08/09/2016 10:55am 08/09/2016 11:13am Chloride Level 109 MEQ/L H 98-107 08/09/2016 10:55am 08/09/2016 11:13am Carbon Dioxide Level 25 MEQ/L 22-30 08/09/2016 10:55am 08/09/2016 11: 13am Anion Gap 11 MEQ/L 5-15 08/09/2016 10:55am 08/09/2016 11:13am Blood Urea Nitrogen 17.0 MG/DL 7-17 08/09/2016 10:55am 08/09/2016 11: 13am Creatinine 0.9 MG/DL 0.7-1.2 08/09/2016 10:55am 08/09/2016 11:13am BUN/Creatinine Ratio 19 RATIO 6-26 08/09/2016 10:55am 08/09/2016 11: 13am Glomerular Filtration Rate Calc 71 08/09/2016 10:55am 08/09/2016 11 :13am Glucose Level 111 MG/DL H 65-110 08/09/2016 10:55am 08/09/2016 11:13am Calculated Osmolality 282 MOSM/KG H 261-280 08/09/2016 10:55am 2016 11:13am Calcium Level 9.6 MG/DL 8.4-10.2 08/09/2016 10:55am 08/09/2016 11:13am Total Bilirubin 0.60 MG/DL 0.20-1.30 08/09/2016 10:55am 08/09/2016 11: 13am Alkaline Phosphatase 66 U/L 38-126 08/09/2016 10:55am 08/09/2016 11: 13am Total Protein 7.0 G/DL 6.3-8.2 08/09/2016 10:55am 08/09/2016 11:13am Albumin 4.1 G/DL 3.5-5.0 08/09/2016 10:55am 08/09/2016 11:13am Globulin 2.9 G/DL 2.4-3.6 08/09/2016 10:55am 08/09/2016 11:13am Albumin/Globulin Ratio 1.4 RATIO 1.1-2.2 08/09/2016 10:55am 08/09/2016 11:13am Aspartate Amino Transf (AST/SGOT) 29 U/L 14-36 08/09/2016 10:55am 08/09 11:13am Alanine Aminotransferase (ALT/SGPT) 56 U/L H 9-52 08/09/2016 10:55am 12/2016 11:13am Troponin I < 0.012 ng/ml 0-0.12 08/09/2016 10:55am 08/09/2016 11:24am Troponin values with a difference of 55% increase from orginal troponin value represent a true biological DELTA value. (%increase Calc=Orginal Troponin value, divided by subsequent Troponin value, multiplied by 100) Urine Collection Type CLEANCATCH-MIDSTREAM 08/09/2016 11:0508/09 11:14am Urine Color YELLOW YELLOW 08/09/2016 11:0508/09/2016 11:14am Urine Turbidity CLEAR CLEAR 08/09/2016 11:0508/09/2016 11:14am Urine Specific [place] 1.020 1.015-1.025 08/09/2016 11:052016 11:14am Urine pH 5.5 5.0-8.0 08/09/2016 11:0508/09/2016 11:14am Urine Leukocyte Esterase NEGATIVE NEGATIVE 08/09/2016 11:052016 11:14am Urine Nitrite NEGATIVE NEGATIVE 08/09/2016 11:0508/09/2016 11: 14am Urine Protein NEGATIVE NEGATIVE 08/09/2016 11:0508/09/2016 11: 14am Urine Glucose (UA) NEGATIVE NEGATIVE 08/09/2016 11:08/09/2016 11 :14am Urine Ketones NEGATIVE NEGATIVE 08/09/2016 11:0508/09/2016 11: 14am Urine Urobilinogen 0.2 EU/DL NORMAL 08/09/2016 11:0508/09/2016 11: 14am Urine Bilirubin NEGATIVE NEGATIVE 08/09/2016 11:0508/09/2016 11: 14am Urine Blood NEGATIVE NEGATIVE 08/09/2016 11:05am 08/09/2016 11:14am Urinalysis Comment MICROSCOPIC NOT IND. 08/09/2016 11:05am 2016 11:14am Name: DONIS WHITTAKER Unit #: [id number] : 1980 Sex: F Admit Date: Loc / Svc: ED Discharge Date: DIAGNOSTIC IMAGING REPORT Report #: [id number] [facility] PATY Garza EXAM: MRI BRAIN W/WO CONTRAST LOCATION OF DICTATION: Greg HISTORY: ITS.REASON: poss occipital tumor COMPARISON: No prior studies available for comparison. TECHNIQUE: Multiplanar, multisequence, MR imaging of the head with and without contrast was acquired. Contrast: 15 mL of Multihance FINDINGS: The ventricles are of normal size, shape, and contour for the patient's age. No abnormal signal within the white matter. There is some mild nonspecific asymmetry about the occipital lobes likely resulting in findings on prior CT scan. The brain stem, cerebellum, and cerebral hemispheres otherwise have a normal morphologic appearance as well as MR signal intensity on all pulse sequences. Following intravenous administration of contrast, no areas of abnormal enhancement are evident. There are no areas of restricted diffusion to suggest an acute infarct. There is no evidence of an intracranial mass lesion, intracranial hemorrhage, or hydrocephalus. The visualized portions of the orbits, calvarium, paranasal sinuses, and skull base demonstrate no significant abnormality. IMPRESSION: Essentially unremarkable contrast-enhanced MRI of the brain without evidence for mass effect or abnormal enhancement. . Procedures Procedure Status Date Provider(s) Routine venipuncture Completed 06/30/16 Comprehen metabolic panel Completed 06/30/16 Assay of magnesium Completed 06/30/16 Assay of total thyroxine Completed 06/30/16 Assay thyroid stim hormone Completed 06/30/16 Assay triiodothyronine (t3) Completed 06/30/16 Complete cbc w/auto diff wbc Completed 06/30/16 Influenza a/b ag ia Completed 06/30/16 Encounters Encounter Location Arrival/Admit Date Discharge/Depart Date Attending Provider Departed Emergency Room [facility] 08/09/16 9:31am 08/09/16 1: 15pm LAW PATEL DO [facility] 07/11/16 9:01am KAREL MEYER Departed Emergency Room [facility] 07/04/16 7:21am 07/04/16 11: 45am LAW PATEL DO [facility] 06/30/16 9:21am KAREL MEYER Registered [facility] 06/20/16 7:35am CLIENT, BILLING Recent Diagnosis
--- OUTSIDE RECORDS SUMMARY | 2016-08-22 13:13 | XMS REPORT | Continuity of Care Document ---
Author Author Organization Address Unknown Phone Unavailable Allergies Active Description [...] OF UNSPECIFIED ADRENAL G 02/09/2016 Edy SHAH, Rdaha K A I10 ESSENTIAL (PRIMARY) HYPERTENSION 02/09/2016 Radha Snow MD K A I16.1 HYPERTENSIVE EMERGENCY Procedures Results Encounters ACCT No. Visit Date/Time Discharge Status Pt. Type Provider Facility Loc./Unit Complaint [id number] 07/06/2016 08:00:00 2016 08:00:00 CAN Outpatient Radha Snow MD W.NM [id number] 02/10/2016 15:29:00 2015 15:29:00 DIS Outpatient Radha Snow MD W.RAC [id number] 02/08/2016 14:40:00 ACT Outpatient Radha Snow MD W.RAC
--- OUTSIDE RECORDS SUMMARY | 2016-08-22 13:13 | XMS REPORT ---
Author Author Radha Snow Organization [facility] Address [address] [place] [address] Care Team Providers Care Accident Investigator Name Role Phone Radha Snow Unavailable [phone] PROBLEMS Unknown Problems ALLERGIES Unknown Allergies SOCIAL HISTORY No smoking Hx information available PLAN OF CARE VITAL SIGNS MEDICATIONS Unknown Medications RESULTS No Results PROCEDURES No Known procedures IMMUNIZATIONS No Known Immunizations
[2016-08-22 13:14] VITALS: Ht 165.1 cm; Wt 105.9 kg
--- NOTE | 2016-08-22 13:28 | NUR ---
DR RINALDI IN
[2016-08-22] MEDS ORDERED: NORMAL SALINE 1,000 ML IV ONE (13:32)
--- OUTSIDE RECORDS SUMMARY | 2016-08-22 13:35 | XMS REPORT | Continuity of Care Document ---
Author Author [facility] Organization [facility] Address Unknown Phone Unavailable Allergies Active [...] Status Pt. Type Provider Facility Loc./Unit Complaint [id number] 07/06/2016 08:00:00 2016 08:00:00 CAN Outpatient Radha Snow MD [facility] W.NM [id number] 02/10/2016 15:29:00 2015 15:29:00 DIS Outpatient Radha Snow MD [facility] W.RAC [id number] 02/08/2016 14:40:00 ACT Outpatient Radha Snow MD [facility] W.RAC
[2016-08-22] MEDS ORDERED: ACET-62 PO (13:38)
[2016-08-22] MEDS ORDERED: VENL75CA60 PO (13:38)
[2016-08-22] MEDS ORDERED: METOPROLOL 5mg/5ml INJECTION IV ONE (13:45)
[2016-08-22 13:50] LABS: BASOPHILS % (AUTO) 0.1 % (0-2); EOSINOPHILS # (AUTO) 0.1 T/MM3 (0-0.5); EOSINOPHILS % (AUTO) 0.6 % (0-4); HCT - HEMATOCRIT 40.9 % (36-46); IMMATURE GRANULOCYTE # (AUTO) 0.01 T/MM3 (0.00-0.03); IMMATURE GRANULOCYTE % (AUTO) 0.1 % (0.0-0.5); LYMPHOCYTES # (AUTO) 2.7 T/MM3 (1-4.8); LYMPHOCYTES % (AUTO) 33.3 % (23-45); MEAN CORPUSCULAR HGB 29.2 UUG (26-34); MEAN CORPUSCULAR HGB CONC(MCHC 34.2 GM/DL (31-37); MEAN CORPUSCULAR VOLUME 85.2 UM3 (80-100); MEAN PLATELET VOLUME 9.8 UM3 (9.4-12.4); MONOCYTES # (AUTO) 0.5 T/MM3 (0-0.8); NEUTROPHILS #(AUTO)-ABSOLUTE 4.9 T/MM3 (1.8-7.7); NEUTROPHILS % (AUTO) 59.9 % (33-66); WBC - WHITE BLOOD COUNT 8.2 T/MM3 (4.5-11.0)
--- NOTE | 2016-08-22 13:50 | NUR ---
REPORT TO JODIE JEONG
[2016-08-22 14:00] LABS: ALBUMIN 4.7 G/DL (3.5-5.0); ALBUMIN/GLOBULIN RATIO 1.6 RATIO (1.1-2.2); ALKALINE PHOSPHATASE 79 U/L (38-126); ALT (SGPT) 61 U/L (9-52); ANION GAP 19 MEQ/L (5-15); AST (SGOT) 46 U/L (14-36); BUN/CREATININE RATIO 12 RATIO (6-26); CALCIUM 9.7 MG/DL (8.4-10.2); CHLORIDE 105 MEQ/L (98-107); CO2 - CARBON DIOXIDE 23 MEQ/L (22-30); CREATININE 0.9 MG/DL (0.7-1.2); GLOMERULAR FILTRATION RATE 71; GLUCOSE 103 MG/DL (65-110); POTASSIUM 3.9 MEQ/L (3.6-5); SODIUM 147 MEQ/L (134-144); TOTAL PROTEIN 7.6 G/DL (6.3-8.2)
--- NOTE | 2016-08-22 14:46 | DI ---
Indication: ITS.REASON: palpatations CHEST, PA LATERAL: Comparison: None Technique: PA and lateral chest Findings: Patient shows normal heart and mediastinum and clear lungs. No acute bony findings are appreciated. Impression: Unremarkable two-view chest. .
--- NOTE | 2016-08-22 15:32 | ERPDOC ---
Departure Disposition Decision Date: August 22, 2016 Disposition Decision Time: 15:35 Disposition: 01 DISCHARGED HOME, SELF-CARE Impression Impression Impression: Primary Impression: Tachycardia Additional Impressions: Hypertension Anxiety Severity: Moderate Condition: Stable Seen By: Physician only Referrals: DONN GREEN MD (Family) Patient Instructions: Palpitations (ED) Problems/Meds/Labs Reviewed?: Yes Medications reviewed and manag: Yes Additional Instructions: Please follow up with your primary provider. Thyroid hormones are pending. Follow up care ordered?: Yes Mental Status: Alert, Oriented HPI - Cardiac General Chief Complaint: Palpitations Stated Complaint: RAPID HEARTBEAT, LIGHTHEADED Time Seen by Provider: 13:12 HPI - Cardiac General Initial Comments 35-year-old female presents with tachycardia and hypertension. This is been going on for approximately a week since she had her gallbladder removed. Patient is been in several times for this. She is very frustrated and feels like no is taking her seriously. She doesn't think this is straight anxiety, especially as it never occurred before the surgery. Seems to onset intermittently. She is been worked up including CT brain which was negative. She had an appointment today for cardiac ultrasound but had an onset of tachycardia she was heading down was concerned and she felt like she might pass out. Therefore she came to the ED. Symptoms of mostly resolved now except that she continues with high blood pressure, she still has some tachycardia, but not up to the rate of 140 which it was in her car. She checked it on a pulse oximeter and got a reading of her heart rate. Aspirin Today: 81 mg x 4 Allergies: Coded Allergies: diphenhydramine (Verified Allergy, Severe, 08/09/16) svt diltiazem (Verified Allergy, Unknown, RASH, 08/09/16) Uncoded Allergies: Sulfa eyedrops (Allergy, Mild, 07/06/13) Past History Past Medical History Metabolic: hypercholesterolemia, hypertension Hx Echocardiogram: No GI: GERD Psychological: anxiety, other Surgical History General: gallbladder Family History Family PMH: FOUND: other Vaccines Hx Influenza Vaccination: Yes Social History Does patient use chewing tobac: No Second Hand Exposure: No Substance Use Type: does not use Alcohol Intake: none Housing: house Service: No Current Occupational Status: employed Occupational Hazard: No Advance Directives: Yes Full Code Record Review Pertinent history updated: Yes Review of Systems Cardiovascular Cardiac: see HPI Pulmonary Respiratory: see HPI Neurological General: see HPI All other Systems All Other Systems: Reviewed and Negative Physical Exam General General Nourishment: well nourished, well developed, appears stated age, acute distress Distress Description Patient is obviously uncomfortable, she is also emotional. Vitals and Pain First Documented Vital Signs Date Time Temp Pulse Resp B/P Pulse Ox O2 Delivery O2 Flow Rate FiO2 08/22/16 13:14 97.8 116 16 179/102 100 Room Air Weight: Kilograms: 105.900 Height (feet): 5 Height (inches): 5.00 Triage Pain Scale: Normal Exams: Head: Normocephalic w/o trauma Chest/Resp: Clear all lopez, with good airflow, and symmetry bilaterally CV: Regular rate and rhythm (rhythm is regular, rate is tachycardic.), without murmur or gallop, Pulses 2+ all extremities, capillary refill, <2 seconds all ext., no pedal edema noted Abdomen: Bowel sounds positive, soft, non-tender, non-distended, no hepatosplenomegaly, masses or bruits noted Neurologic: Patient is alert, and oriented, cranial nerves, motor/sensory/ cerebellar, exams w/o gross deficits, to observation Psychiatric: Patient exhibits, appropriate attention, emotion and affect Differential Diagnoses Considering: Acute DC, Anxiety/Panic, Angina, Atrial Fibrillation Progress Results/Orders Orders Procedure Category Date Status Time Cbc W/Auto LAB 08/22/16 Complete Diff-Reflex Manual 13:32 Cmp - Comprehensive LAB 08/22/16 In Process Metabolic 13:32 Tsh - Thyroid Stim LAB 08/22/16 In Process Hormone 13:32 Troponin I W LAB 08/22/16 In Process Hemolysis Index 13:32 EKG EKG 08/22/16 Taken 13:32 Iv Lock (Ed Only) EDM 08/22/16 Transmitted 13:32 Normal Saline (Normal PHA 08/22/16 In Process Saline Iv) 13:32 Metoprolol (Lopressor) PHA 08/22/16 Complete 13:45 Chest, Pa & Lateral RAD 08/22/16 Resulted 13:32 Us Echocardiogram US 08/22/16 Taken Complete T3 Total - Ams LAB 08/22/16 Logged 15:06 Free T4 (Free LAB 08/22/16 Logged Thyroxine)-Batch Lab Results Laboratory Tests Test 08/22/16 13:45 White Blood Count 8.2T/MM3 Red Blood Count 4.80M/MM3 Hemoglobin 14.0GM/DL Hematocrit 40.9% Mean Corpuscular Volume 85.2UM3 Mean Corpuscular Hemoglobin 29.2UUG Mean Corpuscular Hemoglobin Concent 34.2GM/DL RDW Standard Deviation 38.0FL Platelet Count 400T/MM3 Mean Platelet Volume 9.8UM3 Immature Granulocyte % (Auto) 0.1% Neutrophils (%) (Auto) 59.9% Lymphocytes (%) (Auto) 33.3% Monocytes (%) (Auto) 6.0% Eosinophils (%) (Auto) 0.6% Basophils (%) (Auto) 0.1% Absolute Immature Granulocyte (auto 0.01T/MM3 Absolute Neutrophils (auto) 4.9T/MM3 Absolute Lymphocytes (auto) 2.7T/MM3 Absolute Monocytes (auto) 0.5T/MM3 Absolute Eosinophils (auto) 0.1T/MM3 Absolute Basophils (auto) 0.0T/MM3 Turbidity < 20 Sodium Level 147MEQ/L Potassium Level 3.9MEQ/L Chloride Level 105MEQ/L Carbon Dioxide Level 23MEQ/L Anion Gap 19MEQ/L Blood Urea Nitrogen 11.0MG/DL Creatinine 0.9MG/DL Glomerular Filtration Rate Calc 71 BUN/Creatinine Ratio 12RATIO Glucose Level 103MG/DL Calculated Osmolality 281MOSM/KG Calcium Level 9.7MG/DL Total Bilirubin 0.60MG/DL Icterus Index < 2 Aspartate Amino Transf (AST/SGOT) 46U/L Alanine Aminotransferase (ALT/SGPT) 61U/L Alkaline Phosphatase 79U/L Troponin I < 0.012ng/ml Total Protein 7.6G/DL Albumin 4.7G/DL Globulin 2.9G/DL Albumin/Globulin Ratio 1.6RATIO Thyroid Stimulating Hormone (TSH) Pending Chemistry Specimen Hemolysis 29 Medications Current ED Medications Sodium Chloride (Normal Saline IV) 1,000 ml @ 500 mls/hr Q2H ONCE IV Last administered on 08/22/16t 14:27; Start 08/22/16 at 13:32; Stop 08/22/16 at 15:31 Metoprolol Tartrate (Lopressor) 2.5 mg O ONCE IV ; Start 08/22/16 at 13:45; Stop 08/22/16 at 13:46; Status DC Progress Progress Lab workup returned essentially normal. Patient is very slightly elevated liver enzymes. EKG showed sinus tach. TSH is on the low end of normal. She is tried beta blockers and had hypotensive episodes with them, she went on Inderal and felt suicidal. Cardizem caused her issues as well. She certainly has a lot of complications with this, however the onset is so recent and so distinct, being tied to approximately the time of her gallbladder surgery. We discussed the possibility that there was an event which affected her hypothalamus, that this is unlikely but possible. I did order T3 and free T4. We'll not get results back until tomorrow. Therefore I have discharged her to follow-up with Dr. Green. I do think it's better that she follow up with her primary provider and not be mixing other doctors in. Recommended she see her this week if possible and discuss other options as far as etiology goes. She is stable for discharge CRISTOFER RINALDI MD August 22, 2016 15:32
[2016-08-22 16:00] VITALS: BP 137/86; PULSE 84; RESP 31; TEMP 97.8; O2SAT 100
--- NOTE | 2016-08-22 16:00 | NUR ---
DEPART PT GIVEN DI FOR PALPITATIONS AND F/U. QUESTIONS ASKED/ANSWERED - VERBALIZES UNDERSTANDING OF DI. IV SITE REMOVED. PERSONAL BELONGINGS GATHERED. PT ESCORTED/AMBULATED TO ED EXIT - GAIT STABLE, NO SIGN OF DISTRESS AT THIS TIME.
[2016-08-22 17:01] LABS: THYROID STIM HORMONE-TSH 1.55 MIU/L (0.47-4.68)
--- NOTE | 2016-08-23 12:07 | ECHOF ---
DATE 08/22/2016 INDICATION Tachycardia. Recent gallbladder surgery. TECHNICAL QUALITY Technically good 2-D, M-mode, Doppler echocardiographic images were submitted for interpretation. FINDINGS 1. CARDIAC CHAMBERS. All cardiac chamber measurements are normal. Aortic room diameter is normal. RV size and contractility appeared normal. 2. LEFT VENTRICLE. Wall thickness is normal. Wall motion analysis is normal. Systolic function is normal. EF of 73%. 3. VALVES. Aortic, mitral and tricuspid valve structure and motion appeared normal. Normal valve excursion. 4. DOPPLER. Analysis shows trace regurgitation involving tricuspid and pulmonic valves. Normal systolic PA pressure estimated at 28 mmHg. 5. RV size appeared to be within upper-normal range with normal contractility and normal systolic PA pressure, normal central venous pressure. 6. Diastolic function parameters show E/E' ratio of 6.5, MVDT of 200 milliseconds, E:A ratio of 0.8. Possibility of mild diastolic dysfunction could not be excluded. IMPRESSION 1. Normal cardiac chamber size. 2. Normal LV systolic function, EF of 73%. 3. Possible mild diastolic dysfunction. 4. No significant valvular dysfunction. 5. No evidence of pericardial effusion, intracardiac masses or demonstrable shunts. 6. Screening for aortic coarctation is negative. MTDD
== END 2016-08-22 16:00 | disposition home or self-care (01) ==
LOC: ED 13:07
DX: R00.0 Tachycardia, unspecified (principal); I10 Essential (primary) hypertension; F41.9 Anxiety disorder, unspecified
CPT/HCPCS: 36415; 80053; 84439; 84443; 84480; 84484; 85025; 93005; 93306